=== PATIENT | female | born 1980 | race Caucasian/White ===

== ENCOUNTER → 2016-12-26 | Outpatient (CLI) | payer OTHER ==
[~2016-12-26] MED LIST: CIPR500T78 PO; PRCD5U PO; PRD20T PO
--- OUTSIDE RECORDS SUMMARY | 2016-12-26 13:58 | XMS REPORT | Continuity of Care Document ---
Author Author [facility] Organization [facility] Address Unknown Phone Unavailable Allergies Medications Problems Procedures Results Encounters ACCT No. Visit Date/Time Discharge Status Pt. Type Provider Facility Loc./Unit Complaint [id number] 12/30/2013 19:15:00 2013 21:26:00 DIS Emergency
--- NOTE | 2016-12-26 19:24 | Diagnostic Imaging Report ---
OB ultrasound. INDICATION: Dating. FINDINGS: There is a live intrauterine with heart rate of 130 beats per minute. The placental implantation is posterior. The growth parameters are all around 15 weeks and 1 day which would correlate with the BERNABE of 06/18/2017. IMPRESSION: Live intrauterine . BERNABE is 06/18/2017. survey is recommended at 18-20 weeks of gestation. Dictated by: Dictated on workstation # [id number]
== END ==
LOC: RAD 13:55
PROVIDERS: ATTEND Family Medicine
DX: Z34.82 Encounter for supervision of other normal pregnancy, second trimester (principal)
CPT/HCPCS: 76805

== ENCOUNTER → 2017-02-07 | Outpatient (CLI) | payer MEDICAID ==
--- NOTE | 2017-02-07 13:27 | Diagnostic Imaging Report ---
OB ultrasound. INDICATION: survey. FINDINGS: The heart rate is 127 beats per minute. The placenta is posterior. There is no placenta previa. The cervix is long and closed. survey parameters demonstrate no ventriculomegaly. The four-chamber view is not well seen due to position. The stomach appears unremarkable. The urinary bladder appears unremarkable. Cord insertion appears normal. No hydronephrosis or cystic mass seen at the level of the kidneys. Three-vessel cord is not well seen. The spine demonstrates no definite abnormality. The growth parameters are: Biparietal diameter: 20 weeks and 5 days. Head circumference: 20 weeks 5 days. Abdominal circumference: 20 weeks 4 days. Femur length: 20 weeks 2 days. The average growth parameters are at 20 weeks and 4 days. This is concordant with the prior ultrasound of 12/26/2016 with appropriate interval growth. Current gestational age based on the prior ultrasound is 21 weeks and 2 days. IMPRESSION: Short-term follow-up to reevaluate four-chamber view and three-vessel cord is recommended. Dictated by: Dictated on workstation # [id number]
== END ==
LOC: RAD 10:02
PROVIDERS: ATTEND Family Medicine
DX: Z34.82 Encounter for supervision of other normal pregnancy, second trimester (principal); Z3A.20 20 weeks gestation of pregnancy
CPT/HCPCS: 76805

== ENCOUNTER 2017-05-17 09:00 | Outpatient (CLI) | payer MEDICAID ==
[~2017-05-17] VITALS: Ht 165.1 cm; Wt 107.0 kg
[2017-05-17 09:10] VITALS: BP 112/71
[2017-05-17] MEDS ORDERED: PREN-37 PO (09:21)
--- NOTE | 2017-05-17 10:51 | Diagnostic Imaging Report ---
INDICATION: Vaginal bleeding. TECHNIQUE: Multiple real-time grayscale images were obtained over the gravid uterus. COMPARISON: 02/07/2017 FINDINGS: Single live intrauterine with heart rate of 134 beats per minute. The HODA is normal at 10.4 cm. The placenta is fundal in location. No previa. Fetus is in cephalic position. Biometrical measurements are as follows: Biparietal 9 cm, age 36 weeks 4 days. Head circumference 31.93 cm, age 36 weeks 0 days. Abdominal circumference 31.4 cm, age 35 weeks 3 days. Femur length 6.6 cm, age 34 weeks 1 days. Sonographic estimate age: 35 weeks 4 days. Sonographic estimated date of delivery: 06/17/2017. Estimated Weight: 2610 gm (+/- 381 gm). LMP percentile: 41%. heart rate: 134 beats per minute. number: 1 of 1. IMPRESSION: 1. Single live intrauterine with heart rate of 134 beats per minute. 2. Normal HODA of 10 cm. Dictated by: Dictated on workstation # [id number]
--- NOTE | 2017-05-18 12:04 | Physician Query-Final Dx ---
CALLIE BARRAGAN 05/18/17 1204: Clinic Account Progress/Dx Physician Query: Please give diagnosis Date of Service May 17, 2017 at 09:00 SHUN DAMON MD 05/18/17 1938: Clinic Account Progress/Dx DIAGNOSIS: Diagnosis Third Trimester bleeding CALLIE BARRAGAN May 18, 2017 12:04 SHUN DAMON MD May 18, 2017 19:38
[2017-06-13] MEDS ORDERED: DOCU100C37 PO (07:57)
[2017-06-13] MEDS ORDERED: IBUP-1780 PO (07:57)
[2017-06-13] MEDS ORDERED: OXYC-465 PO (07:57)
== END 2017-05-17 10:40 | disposition home or self-care (01) ==
LOC: LDRP 09:00 → WSo 09:00 → LDRP 10:11 → 3RD 10:11 → WSo 10:40
PROVIDERS: ATTEND Family Medicine
DX: O46.93 Antepartum hemorrhage, unspecified, third trimester (principal); Z3A.35 35 weeks gestation of pregnancy
CPT/HCPCS: 76816; 99213

== ENCOUNTER 2017-06-07 12:03 | Outpatient (CLI) | payer MEDICAID ==
[~2017-06-07] VITALS: Ht 165.1 cm; Wt 108.9 kg
[~2017-06-07 12:03] MED LIST changes: +PREN-37 PO
[2017-06-07] MEDS ORDERED: DIPH25CA79 PO (12:15)
[2017-06-07 12:17] VITALS: BP 112/67
== END 2017-06-07 12:54 | disposition home or self-care (01) ==
LOC: PREOP 12:03
PROVIDERS: ATTEND Obstetrics & Gynecology
DX: Z01.818 Encounter for other preprocedural examination (principal); O34.219 Maternal care for unspecified type scar from previous cesarean delivery; O99.019 Anemia complicating pregnancy, unspecified trimester; D64.9 Anemia, unspecified
CPT/HCPCS: 87081

== ENCOUNTER 2017-06-12 11:05 | Inpatient (IN) | payer MEDICAID ==
[~2017-06-12] VITALS: Ht 165.1 cm; Wt 108.9 kg
[~2017-06-12 11:05] MED LIST changes: +DIPH25CA79 PO
[2017-06-12 11:28] VITALS: BP 116/72
[2017-06-12] MEDS ORDERED: D5 LR IV SOLUTION 1,000 ML IV SCH (12:05)
[2017-06-12] MEDS ORDERED: OXYTOCIN/NORMAL SALINE 500 ML IV SCH (12:07)
[2017-06-12] MEDS ORDERED: D5 LR IV SOLUTION 1,000 ML IV ONE (12:15)
[2017-06-12] MEDS ORDERED: metroNIDAZOLE 500MG/100ML IVPB 100 ML IV ONE (12:15)
[2017-06-12] MEDS ORDERED: MEASLES,MUMPS,RUBELLA 1 EA INJ SC ONE (12:15)
[2017-06-12] MEDS ORDERED: TETANUS,DIPTH,PERTUSS P/F (BOOSTRIX) 0.5 ML VIAL IM ONE (12:15)
[2017-06-12] MEDS ORDERED: PROMETHAZINE INJ 25 MG/ML (PHENERGAN) AMP IM PRN (12:15)
[2017-06-12] MEDS ORDERED: MEPERIDINE (DEMEROL) INJ 100 MG/ML IM PRN (12:15)
[2017-06-12] MEDS ORDERED: metroNIDAZOLE 500MG/100ML IVPB 100 ML ONE (12:27)
[2017-06-12] MEDS ORDERED: CITRIC ACID/SOB CIT (BICITRA) 30 ML UDC ONE (12:27)
[2017-06-12] MEDS ORDERED: METOCLOPRAMIDE INJ 10 MG/2 ML (REGLAN) ONE (12:27)
[2017-06-12] MEDS ORDERED: ceFAZolin 2 GM/50 ML NS 50 ML ONE (12:28)
[2017-06-12] MEDS ORDERED: LACTATED RINGERS 1,000 ML IV ONE ×2 (12:28→14:18)
[2017-06-12] MEDS ORDERED: FAMOTIDINE 20MG/2ML IV (PEPCID) ONE (12:28)
[2017-06-12] MEDS ORDERED: FAMOTIDINE 20MG/2ML IV (PEPCID) IV ONE (12:30)
[2017-06-12] MEDS ORDERED: CATHETER FLUSH 10 ML SYR IV PRN (12:30)
[2017-06-12] MEDS ORDERED: METOCLOPRAMIDE INJ 10 MG/2 ML (REGLAN) IV ONE (12:30)
[2017-06-12] MEDS ORDERED: CITRIC ACID/SOB CIT (BICITRA) 30 ML UDC PO ONE (12:30)
[2017-06-12 12:35] LABS: BASOPHILS % (AUTO) 0 % (0-10); EOSINOPHILS # (AUTO) 0.1 10^3/uL (0.0-0.3); EOSINOPHILS % (AUTO) 1 % (0-10); LYMPHOCYTES # (AUTO) 1.8 X 10^3 (1.0-4.0); LYMPHOCYTES % (AUTO) 17 % (12-44); MEAN CORPUSCULAR HEMOGLOBIN 31 PG (25-34); MEAN CORPUSCULAR HGB CONC 35 G/DL (32-36); MEAN CORPUSCULAR VOLUME 90 FL (80-99); MEAN PLATELET VOLUME 10.8 FL (7.4-10.4); MONOCYTES # (AUTO) 0.9 X 10^3 (0.0-1.0); MONOCYTES % (AUTO) 8 % (0-12); NEUTROPHILS # (AUTO) 7.9 X 10^3 (1.8-7.8); NEUTROPHILS % (AUTO) 74 % (42-75); PLATELET COUNT 199 10^3/uL (130-400); RED BLOOD COUNT 4.19 10^6/uL (4.35-5.85); RED CELL DISTRIBUTION WIDTH 13.2 % (10.0-14.5); WHITE BLOOD COUNT 10.7 10^3/uL (4.3-11.0)
[2017-06-12] MEDS ORDERED: fentaNYL INJECTION 100 MCG/2 ML AMP ONE (12:57)
[2017-06-12] MEDS ORDERED: morphine PF (DURAMORPH) 10 MG/10 ML AMP ONE (12:57)
--- NOTE | 2017-06-12 12:57 | History & Physical ---
History and Physical Date Seen by Provider: Jun 12, 2017 Time Seen by Provider: 12:55 this patient is a 36-year-old female patient of Dr. Nguyen who presents now for repeat at 39-1/7 weeks gestation. Her has been uncomplicated. She denies rupture membranes or bleeding. Allergies are none Medications are Benadryl and vitamins Past medical history, past surgical history, obstetric history, family history, social histories are per the antepartum record for Dr. Li Lab work is as follows Laboratory Tests Test 06/12/17 11:35 Range/Units White Blood Count 10.7 4.3-11.0 10^3/uL Red Blood Count 4.19 L 4.35-5.85 10^6/uL Hemoglobin 13.0 11.5-16.0 G/DL Hematocrit 38 35-52 % Mean Corpuscular Volume 90 80-99 FL Mean Corpuscular Hemoglobin 31 25-34 PG Mean Corpuscular Hemoglobin Concent 35 32-36 G/DL Red Cell Distribution Width 13.2 10.0-14.5 % Platelet Count 199 130-400 10^3/uL Mean Platelet Volume 10.8 H 7.4-10.4 FL Neutrophils (%) (Auto) 74 42-75 % Lymphocytes (%) (Auto) 17 12-44 % Monocytes (%) (Auto) 8 0-12 % Eosinophils (%) (Auto) 1 0-10 % Basophils (%) (Auto) 0 0-10 % Neutrophils # (Auto) 7.9 H 1.8-7.8 X 10^3 Lymphocytes # (Auto) 1.8 1.0-4.0 X 10^3 Monocytes # (Auto) 0.9 0.0-1.0 X 10^3 Eosinophils # (Auto) 0.1 0.0-0.3 10^3/uL Basophils # (Auto) 0.0 0.0-0.1 10^3/uL white count hemoglobin and platelet count are normal. HEENT exam is normal Neck is supple no lymphadenopathy no thyromegaly Abdomen is gravid soft nontender nondistended Extreme show clubbing cyanosis. There is no Homans sign. There is some pretibial pitting edema that is normal. Pelvic exam is deferred Assessment and plan term at 39+ weeks' gestation presenting now for repeat delivery surgical risks complication recovering follow-up have been fully discussed all this patient's questions have been answered and she is ready to proceed. 39 week gestation with previous Allergies and Home Medications Allergies Coded Allergies: No Known Drug Allergies (Unverified , 06/07/17) Home Medications Diphenhydramine HCl 25 Mg Capsule, 25 MG PO DAILY, (Reported) Vit/Iron Fumarate/FA 1 Each Tablet, 1 EACH PO DAILY, (Reported) SAFIA BENNETT MD Jun 12, 2017 12:57
[2017-06-12] MEDS: ceFAZolin INJECTION 2,000 MG in NS (IVPB) 50 ML IV ONE ×2 (13:13→13:17)
[2017-06-12] MEDS ORDERED: OXYTOCIN/NORMAL SALINE 500 ML IV ONE ×2 (13:28→14:22)
[2017-06-12] MEDS ORDERED: LACTATED RINGERS 2,000 ML IV ONE (13:28)
[2017-06-12] MEDS ORDERED: ONDANSETRON 4 MG/2 ML (SDV) Z0FRAN ONE (13:57)
[2017-06-12] MEDS ORDERED: fentaNYL INJECTION 100 MCG/2 ML AMP INJ ONE (14:30)
[2017-06-12] MEDS ORDERED: NALOXONE 0.4 MG/ML 1 ML (NARCAN) VIAL IV PRN (14:30)
[2017-06-12] MEDS ORDERED: morphine PF (DURAMORPH) 10 MG/10 ML AMP INJ ONE (14:30)
[2017-06-12] MEDS ORDERED: ONDANSETRON 4 MG/2 ML (SDV) Z0FRAN IV PRN (14:30)
--- NOTE | 2017-06-12 14:37 | Progress Note-Post Operative ---
Post-Operative Progess Note Surgeon (s)/Supplier Quality Engineer (s) Surgeon SAFIA BENNETT MD Supplier Quality Engineer: Jose BENNETT CC5 Pre-Operative Diagnosis REPEAT CSECTION Post-Operative Diagnosis term with previous Procedure & Operative Findings Date of Procedure 06/12/17 Procedure Performed/Findings repeat delivery Anesthesia Type spinal Estimated Blood Loss Estimated blood loss (mL): 400cc Specimens/Packing Specimens Removed placenta and cord Packing: none SAFIA BENNETT MD Jun 12, 2017 2:37 pm
[2017-06-12 15:34] VITALS: BP 102/73
[2017-06-12 16:03] VITALS: BP 103/65
[2017-06-12] MEDS: oxyCODONE/APAP 10/325MG (PERCOCET 10) TABLET PO PRN (18:02)
[2017-06-12 20:00] VITALS: BP 103/69
[2017-06-12] MEDS: KETOROLAC 30 MG/ML VIAL IVP SCH (22:29)
--- NOTE | 2017-06-12 23:41 | OPERATIVE REPORT ---
DATE OF SERVICE: 06/12/2017 PREOPERATIVE DIAGNOSIS: A 39-1/7 week gestation with previous . POSTOPERATIVE DIAGNOSIS: A 39-1/7 week gestation with previous . OPERATIVE PROCEDURE: Repeat low transverse . Delivery of a viable male infant with Apgars of 8 and 9 at 1 and 5 minutes respectively, weight is 7 pounds and 1 ounce, time of 1347 and a cord blood arterial pH of 7.29. OPERATIVE DESCRIPTION: With the patient in the supine position under satisfactory spinal anesthesia, she was prepped and draped in the usual fashion for abdominal surgery. A Rodriguez catheter was placed in the urinary bladder. A Pfannenstiel incision made through the skin with a scalpel at the site of the patient's previous Pfannenstiel incision. The abdomen was entered in the usual manner. Bladder retractors were placed in position and cleaned the scalpel to make a 4 cm hysterotomy incision transversely across the lower uterine segment that was extended by blunt dissection releasing relatively small to moderate amount of amniotic fluid. The incision was extended bluntly. Barnes forceps were applied to facilitate the delivery of a vigorous viable male . Infant had Apgars of 8 and 9 at 1 and 5 minutes respectively. Weight was 7 pounds, 1 ounce, time was 1347. There was a nuchal cord that was easily released. The cord blood pH had value of 7.29. The infant was voiding as it was delivered. The umbilical cord was doubly clamped and cut. The passed to the pediatric nurse in attendance for delivery. Cord bloods were obtained. The placenta delivered spontaneously Fry, it was normal with a 3 vessel cord. The uterus was exteriorized into a wide plane with a wet laparotomy sponge. Uterine incision then closed with a running locked suture of 2-0 Vicryl. Hemostasis was complete. The uterus did have some adhesions of omentum to the anterior surface. These were taken free with electrocautery and then there was some oozing that was controlled with 3 superficial [id number]-[id number] sutures of 2-0 Vicryl as well. The uterus was now returned to abdominal cavity. All blood, clot and debris were removed from the abdominal cavity. Sponge and needle counts correct and hemostasis assured. The anterior parietal peritoneum was closed with a running suture of 2-0 Vicryl. The rectus muscles were closed with that suture as well. The rectus fascia was closed with 2-0 Vicryl subcutaneous tissue, was closed with 2-0 Vicryl and the skin was stapled. Sponge and needle counts were correct at the end of the procedure. Estimated blood loss for the procedure around 400 mL. The patient tolerated the procedure well and was transferred to the recovery room in stable condition. Infant had been taken stable to the full term nursery under the care of Nurse Greenwood, the pediatric nurse in attendance for delivery. Job ID: [id number] DocumentID: [id number] Dictated Date: 06/12/2017 14:50:14 Field Nurse Case Manager Date: 06/12/2017 21:02:14 Dictated By: SAFIA BENNETT MD
[2017-06-13] VITALS: BP 101/67
[2017-06-13] MEDS: DOCUSATE SODIUM 100 MG (COLACE) CAP PO SCH ×3 (00:17→21:07)
[2017-06-13 04:58] VITALS: BP 94/64
[2017-06-13] MEDS: KETOROLAC 30 MG/ML VIAL IVP SCH ×5 (04:58→17:33)
--- NOTE | 2017-06-13 07:56 | Progress Note-Standard ---
Standard Progress Note Progress Notes/Assess & Plan Date Seen by Provider: Jun 13, 2017 Time Seen by Provider: 07:55 Progress/Assessment & Plan this patient without complaint. She is ambulating, voiding, tolerating by mouth , has good pain control. She denies chest pain, denies shortness breath, denies nausea vomiting, and denies headache. Vital Signs Date Time Temp Pulse Resp B/P (MAP) Pulse Ox O2 Delivery O2 Flow Rate FiO2 06/13/17 04:58 96.0 75 19 94/64 96 Room Air 06/13/17 00:00 96.8 92 17 101/67 96 Room Air 06/12/17 20:00 96.6 107 17 103/69 96 Room Air 06/12/17 16:03 96.0 85 16 103/65 95 Room Air 06/12/17 15:34 97.0 78 16 102/73 93 Room Air 06/12/17 11:28 99.0 83 16 116/72 93 Room Air I & O 06/13/17 07:00 Intake Total 1600 ml Output Total 1100 ml Balance 500 ml vital signs are stable. Patient is afebrile. Fundus is firm below the umbilicus nontender. The incision is clean dry and intact. extremities show no clubbing cyanosis. There is no Homans sign. assessment and plan postoperative day number 1 doing well. Plan is for routine convalescence care today and discharge home tomorrow SAFIA BENNETT MD Jun 13, 2017 7:56 am
[2017-06-13] MEDS ORDERED: DOCU100C37 PO (07:57)
[2017-06-13] MEDS ORDERED: IBUP-1780 PO (07:57)
[2017-06-13] MEDS ORDERED: OXYC-465 PO (07:57)
--- NOTE | 2017-06-13 07:59 | Discharge Instructions ---
Discharge Instructions Discharge Medications New, Converted or Re-Newed RX: RX on Chart Patient Instructions Patient Instructions: as directed Return to The Hospital For: as directed Activity & Diet Discharge Diet: No Restrictions Activity as Tolerated: No Orders-Post D/C & Referrals Follow Up Appt: RTC 1 week for incision check with me. Call to make follow up appt. for patient in [address] Nguyen. Wound Care: Remove any, apply benzoin and steri strips. Activity Per routine post instructions. Please call in RX to patient pharmacy. Diet as tolerated Patient may shower or tub bathe as desired. Continue home meds SAFIA BENNETT MD Jun 13, 2017 7:59 am
[2017-06-13 08:00] VITALS: BP 90/60
[2017-06-13] MEDS: oxyCODONE/APAP 10/325MG (PERCOCET 10) TABLET PO PRN ×2 (09:56→23:20)
--- NOTE | 2017-06-13 10:42 | Anesthesia-Regional Post-Op ---
Regional Patient Condition Mental Status: Alert, Oriented x3 Circulation: Same as Pre-Op Headache: Absent Sensation: Full Recovery Motor Block: Absent Post Op Complications Complications None Follow Up Care/Instructions Patient Instructions None needed. Anesthesia/Patient Condition Patient is doing well, no complaints, stable vital signs, no apparent adverse anesthesia problems. No complications reported per nursing. NANCY HICKMAN CRNA Jun 13, 2017 10:41
[2017-06-13] MEDS: IBUPROFEN 800 MG (MOTRIN) TAB PO SCH ×3 (11:55→23:20)
[2017-06-13 12:00] VITALS: BP 89/60
[2017-06-13 16:00] VITALS: BP 91/60
[2017-06-13 21:00] VITALS: BP 95/64
[2017-06-14 04:00] VITALS: BP 97/60
[2017-06-14] MEDS: IBUPROFEN 800 MG (MOTRIN) TAB PO SCH (06:14)
[2017-06-14] MEDS: oxyCODONE/APAP 10/325MG (PERCOCET 10) TABLET PO PRN ×2 (06:15→09:39)
--- NOTE | 2017-06-14 07:07 | Progress Note-Standard ---
Standard Progress Note Progress Notes/Assess & Plan Date Seen by Provider: Jun 14, 2017 Time Seen by Provider: 07:06 Progress/Assessment & Plan this patient without complaint. She is ambulating, voiding, tolerating by mouth , has good pain control. She denies chest pain, denies shortness breath, denies nausea vomiting, and denies headache. Vital Signs Date Time Temp Pulse Resp B/P (MAP) Pulse Ox O2 Delivery O2 Flow Rate FiO2 06/13/17 04:58 96.0 75 19 94/64 96 Room Air 06/13/17 00:00 96.8 92 17 101/67 96 Room Air 06/12/17 20:00 96.6 107 17 103/69 96 Room Air 06/12/17 16:03 96.0 85 16 103/65 95 Room Air 06/12/17 15:34 97.0 78 16 102/73 93 Room Air 06/12/17 11:28 99.0 83 16 116/72 93 Room Air I & O 06/13/17 07:00 Intake Total 1600 ml Output Total 1100 ml Balance 500 ml vital signs are stable. Patient is afebrile. Fundus is firm below the umbilicus nontender. The incision is clean dry and intact. extremities show no clubbing cyanosis. There is no Homans sign. assessment and plan postoperative day number 1 doing well. Plan is for routine convalescence care today and discharge home tomorrow June 14, 2017 Patient without complaint.she is ambulating, voiding, tolerating by mouth well, has good pain control, is requesting discharge home. Vital Signs Date Time Temp Pulse Resp B/P (MAP) Pulse Ox O2 Delivery O2 Flow Rate FiO2 06/14/17 04:00 97.3 75 18 97/60 98 Room Air 06/13/17 21:00 98.2 80 18 95/64 98 Room Air 06/13/17 16:00 97.7 81 20 91/60 95 Room Air 06/13/17 12:00 97.7 81 20 89/60 95 Room Air 06/13/17 08:00 98.6 80 20 90/60 98 Room Air vital signs are stable. Patient is afebrile. Abdomen is benign. Fundus is firm below the umbilicus is nontender. The incision is clean dry and intact. Extremities show clubbing or cyanosis. There is no Homans sign. Assessment and plan postoperative day number 2 status post repeat doing well. Plan is for discharge home with follow-up in clinic Final Diagnosis 39 week repeat delivery SAFIA BENNETT MD Jun 14, 2017 7:07 am
[2017-06-14 07:50] VITALS: BP 94/64
[2017-06-14] MEDS: DOCUSATE SODIUM 100 MG (COLACE) CAP PO SCH (09:39)
== END 2017-06-14 11:15 | disposition home or self-care (01) | DRG 766 ==
LOC: LDRP 11:05
PROVIDERS: ADMIT Obstetrics & Gynecology; ATTEND Obstetrics & Gynecology
PROC: 10D00Z1 Extraction of Products of Conception, Low, Open Approach (ICD-10-PCS; principal; 2017-06-12 13:15)
DX: O34.211 Maternal care for low transverse scar from previous cesarean delivery (principal); O69.81X0 Labor and delivery complicated by cord around neck, without compression, not applicable or unspecified; Z3A.39 39 weeks gestation of pregnancy; Z37.0 Single live birth
CPT/HCPCS: 36415; 85025; 86850; 86900; 86901; 94664

== ENCOUNTER 2020-05-13 11:12 | Emergency (ER) | payer BC, MEDICAID ==
[~2020-05-13] VITALS: Ht 165.1 cm; Wt 110.3 kg
[~2020-05-13 11:12] MED LIST changes: +DOCU100C37 PO; +IBUP-1780 PO; +OXYC-465 PO
[2020-05-13 11:34] VITALS: BP_SYST 120; BP_SYST 126; BP_SYST 143; BP_DIAS 101; BP_DIAS 84
[2020-05-13] MEDS ORDERED: NS IV 1000 ML 1,000 ML IV SCH (11:45)
[2020-05-13 11:50] LABS: BASOPHILS % (AUTO) 1 % (0-10); EOSINOPHILS # (AUTO) 0.2 10^3/uL (0.0-0.3); EOSINOPHILS % (AUTO) 3 % (0-10); HEMATOCRIT 43 % (35-52); HEMOGLOBIN 15.1 G/DL (11.5-16.0); LYMPHOCYTES # (AUTO) 2.1 X 10^3 (1.0-4.0); LYMPHOCYTES % (AUTO) 29 % (12-44); MEAN CORPUSCULAR HEMOGLOBIN 32 PG (25-34); MEAN CORPUSCULAR HGB CONC 35 G/DL (32-36); MEAN CORPUSCULAR VOLUME 91 FL (80-99); MEAN PLATELET VOLUME 10.8 FL (7.4-10.4); MONOCYTES # (AUTO) 0.7 X 10^3 (0.0-1.0); MONOCYTES % (AUTO) 10 % (0-12); NEUTROPHILS # (AUTO) 4.1 X 10^3 (1.8-7.8); NEUTROPHILS % (AUTO) 57 % (42-75); PLATELET COUNT 265 10^3/uL (130-400); RED CELL DISTRIBUTION WIDTH 12.8 % (10.0-14.5); WHITE BLOOD COUNT 7.3 10^3/uL (4.3-11.0)
[2020-05-13 11:54] LABS: ALBUMIN 4.4 GM/DL (3.2-4.5); CHLORIDE 106 MMOL/L (98-107); POTASSIUM 3.7 MMOL/L (3.6-5.0); SODIUM 140 MMOL/L (135-145)
[2020-05-13 11:55] LABS: CALCIUM 9.2 MG/DL (8.5-10.1)
[2020-05-13 11:56] LABS: GLUCOSE 102 MG/DL (70-105)
[2020-05-13 11:57] LABS: TOTAL PROTEIN 7.5 GM/DL (6.4-8.2)
[2020-05-13 11:58] LABS: BILIRUBIN,TOTAL 0.5 MG/DL (0.1-1.0); CARBON DIOXIDE 25 MMOL/L (21-32)
[2020-05-13 12:00] LABS: ALKALINE PHOSPHATASE 104 U/L (40-136); CREATININE SERUM 0.97 MG/DL (0.60-1.30); GFR ESTIMATED > 60
[2020-05-13 12:01] LABS: BUN/CREATININE RATIO 13
[2020-05-13 12:03] LABS: ALANINE AMINOTRANSFERASE 37 U/L (0-55); MAGNESIUM 2.1 MG/DL (1.6-2.4)
[2020-05-13 12:26] LABS: FREE T4 (FREE THYROXINE) 0.94 NG/DL (0.70-1.48)
[2020-05-13 12:30] LABS: BILIRUBIN,URINE NEGATIVE (NEGATIVE); CLARITY,URINE SL CLOUDY; COLOR,URINE YELLOW; GLUCOSE, URINE (UA) NEGATIVE (NEGATIVE); KETONES,URINE NEGATIVE (NEGATIVE); LEUKOCYTE ESTERASE ,URINE NEGATIVE (NEGATIVE); NITRITE,URINE NEGATIVE (NEGATIVE); PH,URINE 7.5 (5-9); PROTEIN,URINE NEGATIVE (NEGATIVE)
[2020-05-13 12:38] LABS: AMORPHOUS SEDIMENT,UR MOD AMOR PHOSPHATE /LPF; BACTERIA,URINE TRACE /HPF
--- NOTE | 2020-05-13 12:42 | ED General ---
General Chief Complaint: Dizziness/Syncope Stated Complaint: WEAKNESS Nursing Triage Note: Pt ambulates to room #5 with c/o weakness, shakiness, et light headedness. Pt reports s/s began on this day while at work after near syncopal episode. Pt reports increase in severity in s/s when standing. Pt reports she began ATX prescription on this day d/t broken tooth. A&OX4. Nursing Sepsis Screen: No Definite Risk Source of Information: Patient Exam Limitations: No Limitations History of Present Illness Date Seen by Provider: May 13, 2020 Time Seen by Provider: 12:30 Initial Comments To ER with general weakness shakiness and lightheadedness that started this morning while at work. She does feel anxious. Never had this before. Timing/Duration: 1-2 Days Severity: Moderate Allergies and Home Medications Allergies Coded Allergies: No Known Drug Allergies (Unverified , 06/07/17) Home Medications Diphenhydramine HCl 25 Mg Capsule, 25 MG PO DAILY, (Reported) Docusate Sodium 100 Mg Capsule, 100 MG PO BID Prescribed by: SAFIA GAN on 06/13/17 075 Ibuprofen 800 Mg Tablet, 800 MG PO Q6H Prescribed by: SAFIA GAN on 06/13/17 075 Oxycodone HCl/Acetaminophen 1 Each Tablet, 1-2 TAB PO Q4HR PRN for PAIN-MODERATE Prescribed by: SAFIA GAN on 06/13/17 075 Vit/Iron Fumarate/FA 1 Each Tablet, 1 EACH PO DAILY, (Reported) Patient Home Medication List Home Medication List Reviewed: Yes Review of Systems Review of Systems Constitutional: see HPI; No chills, No fever EENTM: see HPI Respiratory: no symptoms reported; No dyspnea on exertion, No short of breath Cardiovascular: see HPI; No chest pain, No edema, No Hx of Intervention, No palpitations, No syncope, No vascular heart diseas Genitourinary: no symptoms reported Musculoskeletal: no symptoms reported Skin: no symptoms reported Psychiatric/Neurological: No Symptoms Reported Hematologic/Lymphatic: No Symptoms Reported Past Llkskbu-Jjwegw-Aofksa Hx Patient Social History Alcohol Use: Denies Use Recreational Drug Use: No Smoking Status: Current Everyday Smoker Type Used: Cigarettes Former Smoker, Quit: Sep 12, 2016 Recent Foreign Travel: No Contact w/Someone Who Travel: No Recent Infectious Disease Expo: No Recent Hopitalizations: No Immunizations Up To Date Tetanus Booster (TDap): Unknown PED Vaccines UTD: Yes Seasonal Allergies Seasonal Allergies: No Past Medical History Surgeries: Yes Section, Tubal Ligation Respiratory: No Cardiac: No Neurological: No Female Reproductive Disorders: Denies Sexually Transmitted Disease: No HIV/AIDS: No Genitourinary: No Gastrointestinal: Yes Gastroesophageal Reflux Musculoskeletal: No Endocrine: No HEENT: Yes (GLASSES) Loss of Vision: Bilateral Hearing Impairment: Denies Cancer: No Psychosocial: No Integumentary: No Blood Disorders: No Adverse Reaction/Blood Tranf: No Physical Exam Vital Signs Vital Signs - First Documented 05/13/20 11:26 Temp 36.5 Pulse 78 Resp 17 B/P (MAP) 124/96 (105) Pulse Ox 98 O2 Delivery Room Air Capillary Refill : Less Than 3 Seconds Height, Weight, BMI Height: 5'5.00" Weight: 240lbs. 3.0oz. 108.921317dh; 40.00 BMI Method: General Appearance: No Apparent Distress, WD/WN Eyes: Bilateral Eye Normal Inspection, Bilateral Eye PERRL, Bilateral Eye EOMI HEENT: PERRL/EOMI, TMs Normal Neck: Full Range of Motion, Normal Inspection Respiratory: No Accessory Muscle Use, No Respiratory Distress Gastrointestinal: Non Tender, Soft Extremity: Normal Capillary Refill, Normal Inspection Neurologic/Psychiatric: Alert, Oriented x3 Skin: Normal Color, Warm/Dry Progress/Results/Core Measures Suspected Sepsis Recent Fever Within 48 Hours: No Infection Criteria Present: Suspected New Infection New/Unexplained Altered Menta: No Sepsis Screen: No Definite Risk SIRS Temperature: Pulse: 100 Respiratory Rate: 17 Laboratory Tests 05/13/20 11:35: White Blood Count 7.3 Blood Pressure 143 /101 Mean: 115 Laboratory Tests 05/13/20 11:35: Creatinine 0.97, Platelet Count 265, Total Bilirubin 0.5 Results/Orders Lab Results Laboratory Tests Test 05/13/20 11:35 05/13/20 11:40 Range/Units White Blood Count 7.3 4.3-11.0 10^3/uL Red Blood Count 4.72 4.35-5.85 10^6/uL Hemoglobin 15.1 11.5-16.0 G/DL Hematocrit 43 35-52 % Mean Corpuscular Volume 91 80-99 FL Mean Corpuscular Hemoglobin 32 25-34 PG Mean Corpuscular Hemoglobin Concent 35 32-36 G/DL Red Cell Distribution Width 12.8 10.0-14.5 % Platelet Count 265 130-400 10^3/uL Mean Platelet Volume 10.8 H 7.4-10.4 FL Neutrophils (%) (Auto) 57 42-75 % Lymphocytes (%) (Auto) 29 12-44 % Monocytes (%) (Auto) 10 0-12 % Eosinophils (%) (Auto) 3 0-10 % Basophils (%) (Auto) 1 0-10 % Neutrophils # (Auto) 4.1 1.8-7.8 X 10^3 Lymphocytes # (Auto) 2.1 1.0-4.0 X 10^3 Monocytes # (Auto) 0.7 0.0-1.0 X 10^3 Eosinophils # (Auto) 0.2 0.0-0.3 10^3/uL Basophils # (Auto) 0.0 0.0-0.1 10^3/uL Sodium Level 140 135-145 MMOL/L Potassium Level 3.7 3.6-5.0 MMOL/L Chloride Level 106 98-107 MMOL/L Carbon Dioxide Level 25 21-32 MMOL/L Anion Gap 9 5-14 MMOL/L Blood Urea Nitrogen 13 7-18 MG/DL Creatinine 0.97 0.60-1.30 MG/DL Estimat Glomerular Filtration Rate > 60 BUN/Creatinine Ratio 13 Glucose Level 102 70-105 MG/DL Calcium Level 9.2 8.5-10.1 MG/DL Corrected Calcium 8.9 8.5-10.1 MG/DL Magnesium Level 2.1 1.6-2.4 MG/DL Total Bilirubin 0.5 0.1-1.0 MG/DL Aspartate Amino Transf (AST/SGOT) 31 5-34 U/L Alanine Aminotransferase (ALT/SGPT) 37 0-55 U/L Alkaline Phosphatase 104 40-136 U/L Total Protein 7.5 6.4-8.2 GM/DL Albumin 4.4 3.2-4.5 GM/DL Thyroid Stimulating Hormone (TSH) 1.58 0.35-4.94 UIU/ML Free Thyroxine 0.94 0.70-1.48 NG/DL Serum Test, Qualitative NEGATIVE NEGATIVE Urine Color YELLOW Urine Clarity SL CLOUDY Urine pH 7.5 5-9 Urine Specific Douglas 1.020 1.016-1.022 Urine Protein NEGATIVE NEGATIVE Urine Glucose (UA) NEGATIVE NEGATIVE Urine Ketones NEGATIVE NEGATIVE Urine Nitrite NEGATIVE NEGATIVE Urine Bilirubin NEGATIVE NEGATIVE Urine Urobilinogen 0.2 < = 1.0 MG/DL Urine Leukocyte Esterase NEGATIVE NEGATIVE Urine RBC (Auto) 1+ H NEGATIVE Urine RBC 2-5 H /HPF Urine WBC NONE /HPF Urine Squamous Epithelial Cells 5-10 /HPF Urine Crystals PRESENT H /LPF Urine Amorphous Sediment MOD JAKE PHOSPHATE H /LPF Urine Bacteria TRACE /HPF Urine Casts NONE /LPF Urine Mucus NEGATIVE /LPF Urine Culture Indicated NO My Orders Orders - SHELBY ROTHMAN FOOD SAFETY MANAGER Cbc With Automated Diff (05/13/20 11:44) Comprehensive Metabolic Panel (05/13/20 11:44) Hcg,Qualitative Serum (05/13/20 11:44) Ed Iv/Invasive Line Start (05/13/20 11:44) Magnesium (05/13/20 11:44) Thyroid Stimulating Hormone (05/13/20 11:44) Free T4 (Free Thyroxine) (05/13/20 11:44) Ns Iv 1000 Ml (Sodium Chloride 0.9%) (05/13/20 11:45) Ua Culture If Indicated (05/13/20 12:23) Alprazolam Tablet (Xanax Tablet) (05/13/20 12:45) Medications Given in ED Current Medications Medications Dose Ordered Sig/Irene Route Start Time Stop Time Status Last Admin Dose Admin Alprazolam 0.25 mg ONCE ONCE PO 05/13/20 12:45 05/13/20 12:46 DC 05/13/20 12:45 0.25 MG Vital Signs/I&O 05/13/20 05/13/20 05/13/20 11:26 11:34 13:14 Temp 36.5 Pulse 78 80 60 79 64 100 66 Resp 17 B/P (MAP) 124/96 (105) 126/84 (98) 115/82 (93) 120/84 (96) 122/77 (92) 143/101 (115) 119/83 (95) Pulse Ox 98 O2 Delivery Room Air Capillary Refill : Less Than 3 Seconds Blood Pressure Mean: 115 Departure Impression Primary Impression: Lightheadedness Additional Impressions: Anxiety Dizziness Disposition: 01 HOME, SELF-CARE Condition: Stable Departure-Patient Inst. Decision time for Depature: 13:27 Referrals: SHUN NGUYEN MD (PCP/Family) Primary Care Physician Patient Instructions: Anxiety, Adult (DC), Vertigo (a Type of Dizziness), La byrinthitis Add. Discharge Instructions: 1. Return to ER for any concerns 2. Follow-up with Dr. Nguyen 3. Medication as directed All discharge instructions reviewed with patient and/or family. Voiced understanding. SHELBY ROTHMAN FOOD SAFETY MANAGER May 13, 2020 12:42
[2020-05-13] MEDS ORDERED: ALPRAZolam 0.25 MG (XANAX) TAB PO ONE (12:45)
[2020-05-13 13:14] VITALS: BP_SYST 115; BP_SYST 119; BP_SYST 122; BP_DIAS 77; BP_DIAS 82; BP_DIAS 83
[2020-05-13] MEDS ORDERED: LORA-404 PO (13:34)
[2020-05-13 13:43] VITALS: BP 119/83
--- OUTSIDE RECORDS SUMMARY | 2020-05-13 13:58 | XMS REPORT ---
Author Author Cleveland CLEVELAND Organization [facility] Address [address] [place] [address] Care Team Providers Care [employer] Assessor Name Role Phone ROSE CLEVELAND Unavailable PROBLEMS No Known Problems ALLERGIES No Information ENCOUNTERS Encounter Location Date Diagnosis [facility] [id number] [place] [phone] Jan, [facility] [id number] [place] [id number] Jul, Dental examination Z01.20 an d Caries K02.9 [facility] [id number] [place] [phone] Jul, Tooth infection K04.7 [facility] [id number] [place] [phone] Oct, Caries K02.9 [facility] [id number] [place] [address] [phone] Sep, Caries K02.9 and Dental exam ination Z01.20 [facility] [id number] [place] [phone] Jul, Vertigo R42 [facility] [id number] [place] [phone] Nov, [facility] [address] [facility] [id number] [address] [place] [phone] Oct, [facility] [address] [facility] [id number] [address] [place] [phone] Jun, Encounter for vis it Z39.2 and Sinus congestion R09.81 [facility] [address] [id number] Estelle CAICEDO S [id number] May, [facility] [address] [id number] [place], Estelle S [id number] May, [place] [id number] [place] [phone] May, Screening for deficiency ane shiv Z13.0 [place] [id number] [place] [phone] May, Third trimester Z3 4.93 ; Previous section Z98.891 and 38 weeks gestation of Z3A.38 [place] [id number] [place] [phone] May, 37 weeks gestation of pregna ncy Z3A.37 ; Third trimester Z34.93 and Previous section Z98.891 [place] [id number] [place] [phone] Apr, 36 weeks gestation of pregna ncy Z3A.36 ; Third trimester Z34.93 and Previous section Z98.891 [place] [address] [place] [phone] Apr, [place] [id number] [place] [phone] Apr, 34 weeks gestation of pregna ncy Z3A.34 and Third trimester Z34.93 [place] [id number] [place] [phone] Mar, 31 weeks gestation of pregna ncy Z3A.31 ; Encounter for immunization Z23 ; Previous section Z98.891 and Third trimester Z34.93 [place] [id number] [place] [phone] 14 Mar, 2017 Glucose tolerance test abnor mal R73.02 [place] [address] [facility] [id number] [address] [place] [phone] 07 Mar, 2017 29 weeks gestation of pregna ncy Z3A.29 ; Third trimester Z34.93 and Previous section Z98.891 [facility] [address] [facility] [id number] [address] [place] [phone] Jan, [facility] [address] [facility] [id number] [address] [place] [phone] Jan, Flank pain R10.9 ; Diseases of the digestive system complicating , second trimester O99.612 ; Second trimester Z33.1 and 21 weeks gestation of Z3A.21 [facility] [address] [facility] [id number] [address] [place] [phone] Dec, Normal in multigra stephanie Z34.80 ; 17 weeks gestation of Z3A.17 and Advanced maternal age in multigravida, second trimester O09.522 [facility] [id number] [place] [phone] 16 Nov, 2016 First trimester Z3 3.1 ; Normal in multigravida Z34.80 and 12 weeks gestation of Z3A.12 [facility] [address] [facility] [id number] [address] [place] [phone] Nov, [facility] [id number] [place] [phone] Oct, Encounter for test Z32.00 [facility] [address] [facility] [id number] [address] [place] [address] [phone] Apr, Dental examination V72.2 [facility] [address] [facility] [id number] [address] [place] [phone] Jan, [facility] [address] [facility] [id number] [address] [place] [phone] Jan, [facility] [address] [facility] [id number] [address] [place] [phone] Mar, [facility] [address] [facility] [id number] [address] [place] [phone] Mar, [facility] [id number] [place] [phone] Mar, [facility] [address] [facility] [id number] [address] [place] [phone] Mar, IMMUNIZATIONS No Known Immunizations SOCIAL HISTORY Never Assessed REASON FOR VISIT PLAN OF CARE VITAL SIGNS MEDICATIONS Unknown Medications RESULTS No Results PROCEDURES No Known procedures INSTRUCTIONS MEDICATIONS ADMINISTERED No Known Medications MEDICAL (GENERAL) HISTORY Type Description Date Surgical History section Surgical History Tubal ligation Hospitalization History Childbirth
--- OUTSIDE RECORDS SUMMARY | 2020-05-13 13:58 | XMS REPORT ---
Author Author Cleveland CLEVELAND Organization [facility] Address [address] [place] [address] Care Team Providers Care Cdl Company Driver Name Role Phone ROSE CLEVELAND Unavailable PROBLEMS No Known Problems ALLERGIES No Information ENCOUNTERS Encounter Location Date Diagnosis [facility] [id number] [place] [phone] Jan, [facility] [id number] [place] [address] [phone] Jul, Dental examination Z01.20 an d Caries K02.9 [facility] [id number] [place] [phone] Jul, Tooth infection K04.7 [facility] [id number] [place] [address] [id number] Oct, Caries K02.9 [facility] [id number] [place] [address] [id number] Sep, Caries K02.9 and Dental exam ination Z01.20 [facility] [id number] [place] [phone] Jul, Vertigo R42 [facility] [id number] [place] [phone] Nov, [facility] [address] [facility] [id number] [address] [place] [phone] Oct, [facility] [address] [facility] [id number] [address] [place] [phone] Jun, Encounter for vis it Z39.2 and Sinus congestion R09.81 [facility] [address] [id number] Estelle [place] S [id number] May, [facility] [address] [id number] [place], Estelle S [phone] May, [place] [id number] [place] [phone] May, Screening for deficiency ane shiv Z13.0 [place] [id number] [place] [phone] May, Third trimester Z3 4.93 ; Previous section Z98.891 and 38 weeks gestation of Z3A.38 [place] [id number] [place] [phone] May, 37 weeks gestation of pregna ncy Z3A.37 ; Third trimester Z34.93 and Previous section Z98.891 [place] [id number] [place] [phone] Apr, 36 weeks gestation of pregna ncy Z3A.36 ; Third trimester Z34.93 and Previous section Z98.891 [place] [id number] [place] [phone] Apr, [place] [id number] [place] [phone] Apr, 34 weeks gestation of pregna ncy Z3A.34 and Third trimester Z34.93 [place] [id number] [place] [phone] Mar, 31 weeks gestation of pregna ncy Z3A.31 ; Encounter for immunization Z23 ; Previous section Z98.891 and Third trimester Z34.93 [place] [id number] [place] [phone] 14 Mar, 2017 Glucose tolerance test abnor mal R73.02 [place] [address] [facility] [id number] [address] [place] [phone] 07 Mar, 2017 29 weeks gestation of pregna ncy Z3A.29 ; Third trimester Z34.93 and Previous section Z98.891 [facility] [address] [facility] [id number] [address] [place] [phone] Jan, [facility] [address] [facility] [id number] [address] [place] [phone] Jan, Flank pain R10.9 ; Diseases of the digestive system complicating , second trimester O99.612 ; Second trimester Z33.1 and 21 weeks gestation of Z3A.21 [facility] [address] [facility] [id number] [address] [place] [phone] Dec, Normal in multigra stephanie Z34.80 ; 17 weeks gestation of Z3A.17 and Advanced maternal age in multigravida, second trimester O09.522 [facility] [id number] [place] [phone] 16 Nov, 2016 First trimester Z3 3.1 ; Normal in multigravida Z34.80 and 12 weeks gestation of Z3A.12 [facility] [address] [facility] [id number] [address] [place] [phone] Nov, [facility] [id number] [place] [phone] Oct, Encounter for test Z32.00 [facility] [address] [facility] [id number] [address] [place] [address] [phone] Apr, Dental examination V72.2 [facility] [address] [facility] [id number] [address] [place] [phone] Jan, [facility] [address] [facility] [id number] [address] [place] [phone] Jan, [facility] [address] [facility] [id number] [address] [place] [phone] Mar, [facility] [address] [facility] [id number] [address] [place] [phone] Mar, [facility] [id number] [place] [phone] Mar, [facility] [address] [facility] [id number] [address] [place] [phone] Mar, IMMUNIZATIONS No Known Immunizations SOCIAL HISTORY Never Assessed REASON FOR VISIT PLAN OF CARE VITAL SIGNS MEDICATIONS Unknown Medications RESULTS No Results PROCEDURES No Known procedures INSTRUCTIONS MEDICATIONS ADMINISTERED No Known Medications MEDICAL (GENERAL) HISTORY Type Description Date Surgical History section Surgical History Tubal ligation Hospitalization History Childbirth
--- OUTSIDE RECORDS SUMMARY | 2020-05-13 13:58 | XMS REPORT ---
Author Author [employer] [facility] [employer] [facility] Address [address] [address] Care Team Providers Care Soaking Pits Supervisor Name Role Phone SHUN DAMON Unavailable GONZALEZ MURO Unavailable MARISOL, SHUN Unavailable MARISOL, SHUN Unavailable GASARAH, SHUN Unavailable GASARAH, SHUN Unavailable GASARAH, SHUN Unavailable GASARAH, SHUN Unavailable MARISOL SHUN Unavailable ARIAS MCNAIR Unavailable Migration, Doctor Unavailable Unavailable SHUN DAMON MD Unavailable Unavailable Migration, Doctor Unavailable Unavailable FELICITA GAR Unavailable Unavailable PCP, NONE Unavailable Unavailable ROSE CLEVELAND Unavailable ROSE CLEVELAND Unavailable ROSE CLEVELAND Unavailable SHUN DAMON MD Unavailable Unavailable JABIER ARMENTA MD Unavailable Unavailable Unavailable Unavailable Unavailable Unavailable Unavailable Unavailable Unavailable Unavailable Allergies The data below is from unstructured sourcesNo known allergies.No known allergies.No known allergies.No known allergies.No known allergies. Unknown Allergies Unknown Allergies No Known Allergies No Known Allergies No Known Allergies No Known Allergies No Known Allergies No Known Allergies No Known Allergies No Known Allergies No Information No Information No Information No Information No Information No Information No Known Allergies No Known Allergies No Information No Information No Information No Information No Information No Information No Information No Information Encounters Encounter Date Encounter Type Encounter Diagnosis Care Provider Facility Start: Emergency department JABIER ARMENTA [facility] 05-13-2020 patient visit [facility] Start: Telephone encounter SHUN DAMON [facility] 02-06-2020 Start: [facility] Encounter for dental ROLANDO NEARING [facility] 08-27-2019 DENTAL examination and DENTAL cleaning without abnormal findings Start: [facility] Periapical abscess NATHALIA ANGELO [facility] 08-25-2019 CARE without sinus CARE Start: Patient encounter NONE PCP [facility] 08-25-2019 procedure [facility] ([id number]) Start: Patient encounter NONE PCP [facility] 10-31-2018 procedure [facility] ([id number]) Start: [facility] Dental caries, ROLANDO [facility]ING [facility] 10-31-2018 DENTAL unspecified DENTAL End: 10-31-2018 Start: Patient encounter NONE PCP [facility] 10-17-2018 procedure [facility] ([id number]) Start: [facility] Dental caries, [facility]OLANDO [facility]ING [facility] 10-17-2018 DENTAL unspecified DENTAL End: 10-17-2018 Start: [facility] Dizziness and ARIAS MCNAIR [facility] 08-20-2018 CARE giddiness CARE End: 08-20-2018 Start: Patient encounter SAFIA ECKERTSABRINA Not Av ailable ([id number]) 06-12-2017 procedure MD End: 06-14-2017 Start: Patient encounter SHUN DAMON MD Not Availab le ([id number]) 02-07-2017 procedure Start: Patient encounter SHUN DAMON MD Not Availab le ([id number]) 12-26-2016 procedure Start: Patient encounter SHUN DAMON MD [facility] [address] [facility] 12-26-2016 procedure [facility] Start: Emergency department FELICITA PRICE Not Available ([id number]) 12-30-2013 patient visit End: 12-30-2013 Encounter for dental Doctor [facility] examination and [facility] ([id number]) abnormal findings Medical Equipment No Information Goals No Information Immunizations The data below is from unstructured sources No Known Immunizations No Known Immunizations No Known Immunizations No Known Immunizations No Known Immunizations No Known Immunizations No Known Immunizations No Known Immunizations No Known Immunizations No Known Immunizations No Known Immunizations No Known Immunizations No Known Immunizations No Known Immunizations No Known Immunizations No Known Immunizations No Known Immunizations No Known Immunizations No Known Immunizations No Known Immunizations No Known Immunizations No Known Immunizations No Known Immunizations Interventions No Information Medications Medication Drug Dates Sig Sig (Original) Class(es) (Normalized) methylPREDNISolone 4 mg Corticoste Start: take 4 mg by M ethylPREDNISolone 4 mg 4 mg by Oral oral tablet roid 04-11-2012 mouth once route 1 time p er dayas directed Mar, (1 source) 2011 Active naproxen 500 mg oral Nonsteroid Start: take 1 tablet Nap rosyn 500 mg 1 tablet by Oral route 2 tablet al 04-11-2012 by mouth twice times per d ay Mar, Active (1 source) Anti-infla daily mmatory Drug Payers No Information Plan of Treatment The data below is from unstructured sources Discharge Date 05/17/17 10:40am Instructions/Education Provided OB O UTPATIENT DISCHARGE Prescriptions See Medication Section Discharge Date 06/14/17 11:15am Disposition 01 HOME, SELF-CARE Instructions/Education Provided C-Se ction ( Delivery) Forms Provided PDI Prescriptions See Medication Section Referrals (Unspecified) Entered Date: 06/14/2017 9:20am Note: 1 week incision check with Dr Rodrigez am on June 21Monday at 10:30am at his office. 6week follow up appt with Dr Damon at [facility] on Monday at 11:00am Activity Details Follow Up 4 Weeks Marisol Reason: Activity Details Follow Up 2 Weeks Reason: Activity Details Follow Up 1 Year with Marisol for lucia al well woman Reason: Activity Details Follow Up Follow up as needed with P CP or if symptoms worsening. Reason: Problems Active Problems Problem Problem Date Last Documented Episodic/Chr Provider Classificati Recorded Date onic on Conditions Dizziness and giddiness ; Episodic CH RISTY associated Translations: [ - Vertigo R42] FARRUKHR CHRISTIAN with Other Phone: dizziness or [phone] vertigo 3 (6 sources) Disorders of Dental caries, unspecified ; Episodic Doctor teeth and Translations: [Periapical abscess M igration jaw without sinus] (16 sources) Previous Maternal care for low transverse Episodic SAFIA scar from previous REJI BELTRÁN (4 sources) delivery Residual 39 weeks gestation of Episodic SAFIA codes; SABRINA unclassified MD (5 sources) Residual 20 weeks gestation of Episodic SHUN GAULT codes; unclassified (1 source) Umbilical Labor and delivery complicated by Episodic SAFIA cord cord around neck, without HIGGINBOT HAM complication compression, not applicable or MD (5 sources) unspecified Past or Other Problems Problem Problem Date Last Documented Episodic/Chr Provider Classificati Recorded Date onic on Hemorrhage Antepartum hemorrhage, unspecified, Episodic SHUN GAULT during third trimester ; abruptio placenta; placenta previa (2 sources) Other lower Shortness of breath Episodic FELICITA respiratory MARY ANN PA disease (3 sources) Residual 35 weeks gestation of Episodic SHUN GAULT codes; unclassified (2 sources) Procedures Date Procedure Procedure Detail Performing Cl inician Start: Radex elbow 2 ROSE CLEVELAND 04-11-2012 views Other Phone: EXTRACTION OF POC, SAFIA BENNETT MD LOW CERVICAL, OPEN AP Results Test Name Value Interpreta Reference Facilit Date tion Range y Time laboratory on 2020-05-13 Albumin [Mass/Vol] 4.4 g/dL Negative 3.2-4.5 PENDING 04-29 5-2 g/dL [facility] 07:35-0 ([id number]) 400 ALP [Catalytic 104 U/L Negative 40-136 U/L PENDING activity/Vol] [facility] 07:35-0 ([id number]) 400 ALT [Catalytic 37 U/L Negative 0-55 U/L PENDING activity/Vol] [facility] 07:35-0 ([id number]) 400 Amorphous sediment MOD JAKE PHOSPHATE Abnormal PENDING LM Ql (Urine sed) [facility] 07:40-0 ([id number]) 400 Anion gap 9 mmol/L Negative 5-14 PENDING [Moles/Vol] mmol/L [facility] 07:35-0 ([id number]) 400 AST [Catalytic 31 U/L Negative 5-34 U/L PENDING activity/Vol] [facility] 07:35-0 ([id number]) 400 Bacteria LM Ql TRACE Invalid PENDING (Urine sed) Interpreta LOCATIO 020 tion Code N [facility] 07:40-0 ([id number]) 400 Basophils (Bld) 0.0 10*3/uL Negative 0.0-0.1 PENDING 05-13 [#/Vol] 10*3/uL [facility] 07:35-0 ([id number]) 400 Basophils/100 WBC 1 % Negative 0-10 % PENDING 05-13 (Bld) [facility] 07:35-0 ([id number]) 400 Bilirubin [Mass/Vol] 0.5 mg/dL Negative 0.1-1.0 PENDING mg/dL [facility] 07:35-0 ([id number]) 400 Bilirubin Ql (U) Negative Invalid NEGATIVE PENDING Interpreta [facility] 020 tion Code N [facility] 07:40-0 ([id number]) 400 Calcium [Mass/Vol] 9.2 mg/dL Negative 8.5-10.1 PENDING 07-1 5-2 mg/dL [facility] 020 [facility] 07:35-0 ([id number]) 400 Calcium [Mass/Vol] 8.9 mg/dL Negative 8.5-10.1 PENDING 07-1 5-2 mg/dL [facility] 07:35-0 ([id number]) 400 Casts LM Ql (Urine NONE Invalid PENDING sed) Interpreta [facility] 020 tion Code N [facility] 07:40-0 ([id number]) 400 Chloride [Moles/Vol] 106 mmol/L Negative 98-107 PENDING 0 7-15-2 mmol/L [facility] 07:35-0 ([id number]) 400 Clarity (U) SL CLOUDY Invalid PENDING Interpreta [facility] 020 tion Code N [facility] 07:40-0 ([id number]) 400 CO2 [Moles/Vol] 25 mmol/L Negative 21-32 PENDING mmol/L [facility] 07:35-0 ([id number]) 400 Color (U) YELLOW Invalid PENDING Interpreta [facility] 020 tion Code N [facility] 07:40-0 ([id number]) 400 Creatinine 0.97 mg/dL Negative 0.60-1.30 PENDING [Mass/Vol] mg/dL [facility] 07:35-0 ([id number]) 400 Creatinine and > Invalid PENDING Glomerular Interpreta [facility] 020 filtration tion Code N [facility] 07:35-0 rate.predicted panel (17110) 400 - Serum, Plasma or Blood Crystals LM Ql PRESENT Abnormal PENDING (Urine sed) [facility] 07:40-0 ([id number]) 400 Eosinophils (Bld) 0.2 10*3/uL Negative 0.0-0.3 PENDING [#/Vol] 10*3/uL [facility] 07:35-0 ([id number]) 400 Eosinophils/100 WBC 3 % Negative 0-10 % PENDING (Bld) [facility] 07:35-0 ([id number]) 400 Epithelial 5-10 Invalid PENDING cells.squamous LM Ql Interpreta [facility] 020 (Urine sed) tion Code N [facility] 07:40-0 ([id number]) 400 Erythrocyte 12.8 % Negative 10.0-14.5 PENDING distribution width % [facility] 020 (RBC) [Ratio] [facility] 07:35-0 ([id number]) 400 Free T4 [Mass/Vol] 0.94 ng/dL Negative 0.70-1.48 PENDING ng/dL [facility] 0[facility] 07:35-0 ([id number]) 400 Glucose [Mass/Vol] 102 mg/dL Negative 70-105 PENDING 04-29 5-2 mg/dL [facility] 07:35-0 ([id number]) 400 Glucose Auto test Negative Invalid NEGATIVE PENDING 05-13 strip Ql (U) Interpreta [facility] 020 tion Code N [facility] 07:40-0 ([id number]) 400 HCG ( test) Negative Invalid NEGATIVE PENDING Ql Interpreta [facility] 020 tion Code N [facility] 07:35-0 ([id number]) 400 Hematocrit (Bld) 43 % Negative 35-52 % PENDING [Volume fraction] [facility] 07:35-0 ([id number]) 400 Hemoglobin (Bld) 15.1 g/dL Negative 11.5-16.0 PENDING [Mass/Vol] g/dL [facility] 020 [facility] 07:35-0 ([id number]) 400 Ketones Auto test Negative Invalid NEGATIVE PENDING 05-13 strip Ql (U) Interpreta [facility] 020 tion Code N [facility] 07:40-0 ([id number]) 400 Leukocyte esterase Negative Invalid NEGATIVE PENDING 04-29 Test strip Ql (U) Interpreta [facility] 020 tion Code N [facility] 07:40-0 ([id number]) 400 Lymphocytes (Bld) 2.1 10*3/uL Negative 1.0-4.0 PENDING [#/Vol] 10*3 LOC[facility]IO 020 [facility] 07:35-0 ([id number]) 400 Lymphocytes/100 WBC 29 % Negative 12-44 % PENDING (Bld) [facility]IO 020 [facility] 07:35-0 ([id number]) 400 Magnesium [Mass/Vol] 2.1 mg/dL Negative 1.6-2.4 PENDING mg/dL [facility] 020 [facility] 07:35-0 ([id number]) 400 MCH (RBC) [Entitic 32 pg Negative 25-34 pg PENDING 04-29 mass] LOC[facility]IO 020 [facility] 07:35-0 ([id number]) 400 MCHC (RBC) 35 g/dL Negative 32-36 g/dL PENDING [Mass/Vol] LOCATIO 020 [facility] 07:35-0 ([id number]) 400 MCV (RBC) [Entitic 91 Negative 80-99 PENDING 04-29 vol] [foz_us] [facility] 020 [facility] 07:35-0 ([id number]) 400 Monocytes (Bld) 0.7 10*3/uL Negative 0.0-1.0 PENDING 05-13 [#/Vol] 10*3 [facility]IO 020 [facility] 07:35-0 ([id number]) 400 Monocytes/100 WBC 10 % Negative 0-12 % PENDING 05-13 (Bld) [facility] 07:35-0 ([id number]) 400 Mucus Ql (Urine sed) Negative Invalid PENDING 05-13 Interpreta [facility] 020 tion Code N [facility] 07:40-0 ([id number]) 400 Neutrophils (Bld) 4.1 10*3/uL Negative 1.8-7.8 PENDING [#/Vol] 10*3 [facility] 0[facility] 07:35-0 ([id number]) 400 Neutrophils/100 WBC 57 % Negative 42-75 % PENDING (Bld) [facility] 07:35-0 ([id number]) 400 Nitrite Ql (U) Negative Invalid NEGATIVE PENDING Interpreta [facility] 020 tion Code N [facility] 07:40-0 ([id number]) 400 pH (U) 7.5 [pH] Invalid 5-9 PENDING Interpreta [facility] 020 tion Code N [facility] 07:40-0 ([id number]) 400 Platelet mean volume 10.8 High 7.4-10.4 PENDING (Bld) [Entitic vol] [foz_us] [facility] 0[facility] 07:35-0 ([id number]) 400 Platelets (Bld) 265 10*3/uL Negative 130-400 PENDING 05-13 [#/Vol] 10*3/uL [facility] 020 [facility] 07:35-0 (69594) 400 Potassium 3.7 mmol/L Negative 3.6-5.0 PENDING [Moles/Vol] mmol/L [facility] 020 [facility] 07:35-0 ([id number]) 400 Protein [Mass/Vol] 7.5 g/dL Negative 6.4-8.2 PENDING 04-29 5-2 g/dL [facility] 020 [facility] 07:35-0 ([id number]) 400 Protein Ql (U) Negative Invalid NEGATIVE PENDING Interpreta [facility] 020 tion Code N [facility] 07:40-0 ([id number]) 400 RBC (Bld) [#/Vol] 4.72 10*6/uL Negative 4.35-5.85 PENDING 10*6/uL [facility] 020 [facility] 07:35-0 ([id number]) 400 RBC LM.HPF (Urine Abnormal [HPF] PENDING sed) [#/Area] [facility] 07:40-0 ([id number]) 400 RBC Ql (U) 1+ Abnormal NEGATIVE PENDING [facility] 020 [facility] 07:40-0 (90984) 400 Sodium [Moles/Vol] 140 mmol/L Negative 135-145 PENDING mmol/L [facility] 0[facility] 07:35-0 (39091) 400 Specific gravity (U) 1.020 Invalid 1.016-1.02 PENDING 0 [Rel density] Interpreta 2 [facility] 020 tion Code N [facility] 07:40-0 ([id number]) 400 TSH Qn 1.58 m[IU]/L Negative 0.35-4.94 PENDING u[iU]/mL [facility] 0[facility] 07:35-0 (42908) 400 Urea nitrogen 13 mg/dL Negative 7-18 mg/dL PENDING [Mass/Vol] [facility] 020 [facility] 07:35-0 ([id number]) 400 Urea 13 mg/mg Invalid PENDING nitrogen/Creatinine Interpreta [facility] 020 [Mass ratio] tion Code N [facility] 07:35-0 (53577) 400 Urinalysis complete NO Invalid PENDING W Reflex Culture Interpreta [facility] 020 panel - Urine tion Code N [facility] 07:40-0 ([id number]) 400 Urobilinogen (U) 0.2 mg/dL Invalid < = 1.0 PENDING [Mass/Vol] Interpreta mg/dL [facility] 020 tion Code N [facility] 07:40-0 (69106) 400 WBC (Bld) [#/Vol] 7.3 10*3/uL Negative 4.3-11.0 PENDING 10*3/uL [facility] 020 [facility] 07:35-0 (69158) 400 WBC LM.HPF (Urine NONE Invalid PENDING sed) [#/Area] Interpreta [facility] 020 tion Code N [facility] 07:40-0 ([id number]) 400 laboratory on 2017-05-26 Bacteria identified Note Invalid Not Aer cx Nom (Genital Interpreta Availab 017 specimen) tion Code le 14:56-0 (01721) 400 laboratory on 2017-04-06 Basophils (Bld) 0.0 10*3/uL Invalid 0.0-0.2 Not 04-06 [#/Vol] Interpreta x10E3/uL Availab 017 tion Code le 08:17-0 ([id number]) 400 Basophils/100 WBC 0 % Invalid % Not 04-06 (Bld) Interpreta Availab 017 tion Code le 08:17-0 (04504) 400 Eosinophils (Bld) 0.1 10*3/uL Invalid 0.0-0.4 Not 05-31 [#/Vol] Interpreta x10E3/uL Availab 017 tion Code le 08:17-0 ([id number]) 400 Eosinophils/100 WBC 1 % Invalid % Not 05-31 (Bld) Interpreta Availab 017 tion Code le 08:17-0 (91098) 400 Erythrocyte 13.6 % Invalid 12.3-15.4 Not distribution width Interpreta % Availab 017 (RBC) [Ratio] tion Code le 08:17-0 (41932) 400 Glucose 1 Hr post 50 145 mg/dL High 65-139 Not g glucose PO mg/dL Availab 017 [Mass/Vol] le 10:01-0 (02532) 400 Hematocrit (Bld) 35.9 % Invalid 34.0-46.6 Not [Volume fraction] Interpreta % Availab 017 tion Code le 08:17-0 (70288) 400 Hemoglobin (Bld) 12.1 g/dL Invalid 11.1-15.9 Not [Mass/Vol] Interpreta g/dL Availab 017 tion Code le 08:17-0 (76203) 400 Immature 0.0 10*3/uL Invalid 0.0-0.1 Not granulocytes (Bld) Interpreta x10E3/uL Availab 017 [#/Vol] tion Code le 08:17-0 ([id number]) 400 Immature 0 % Invalid % Not granulocytes/100 WBC Interpreta Availab 017 (Bld) tion Code le 08:17-0 (12808) 400 Lymphocytes (Bld) 1.9 10*3/uL Invalid 0.7-3.1 Not 05-31 [#/Vol] Interpreta x10E3/uL Availab 017 tion Code le 08:17-0 (53906) 400 Lymphocytes/100 WBC 19 % Invalid % Not 05-31 (Bld) Interpreta Availab 017 tion Code le 08:17-0 (04533) 400 MCH (RBC) [Entitic 31.5 pg Invalid 26.6-33.0 Not 06-0 8-2 mass] Interpreta pg Availab 017 tion Code le 08:17-0 (18497) 400 MCHC (RBC) 33.7 g/dL Invalid 31.5-35.7 Not [Mass/Vol] Interpreta g/dL Availab 017 tion Code le 08:17-0 (81278) 400 MCV (RBC) [Entitic 94 fL Invalid 79-97 fL Not 06-0 8-2 vol] Interpreta Availab 017 tion Code le 08:17-0 (60258) 400 Monocytes (Bld) 0.6 10*3/uL Invalid 0.1-0.9 Not 04-06 [#/Vol] Interpreta x10E3/uL Availab 017 tion Code le 08:17-0 (01188) 400 Monocytes/100 WBC 6 % Invalid % Not 04-06 (Bld) Interpreta Availab 017 tion Code le 08:17-0 (18603) 400 Neutrophils (Bld) 7.7 10*3/uL High 1.4-7.0 Not 05-31 [#/Vol] x10E3/uL Availab 017 le 08:17-0 ([id number]) 400 Neutrophils/100 WBC 74 % Invalid % Not 05-31 (Bld) Interpreta Availab 017 tion Code le 08:17-0 (04344) 400 Platelets (Bld) 214 10*3/uL Invalid 150-379 Not 04-06 [#/Vol] Interpreta x10E3/uL Availab 017 tion Code le 08:17-0 (31422) 400 RBC (Bld) [#/Vol] 3.84 10*6/uL Invalid 3.77-5.28 Not Interpreta x10E6/uL Availab 017 tion Code le 08:17-0 (86210) 400 WBC (Bld) [#/Vol] 10.3 10*3/uL Invalid 3.4-10.8 Not Interpreta x10E3/uL Availab 017 tion Code le 08:17-0 (24495) 400 laboratory on 2017-02-11 Bacteria identified Note Invalid Not Cx Nom (U) Interpreta Availab 017 tion Code le 01:13-0 ([id number]) 400 laboratory on 2016-12-21 HPV Negative Invalid Negative Not 16+18+31+33+35+39+45 Interpreta Availab 017 +51+52+56+58+59+68 tion Code le 09:14-0 DNA Probe+sig amp Ql (82297) 500 (Cvx) not yet categorized on 2016-12-20 Diagnosis ICD code Comment Invalid Not [Identifier] Interpreta Availab 017 tion Code le 14:00-0 (35612) 500 Pathology report Comment Invalid Not final diagnosis Interpreta Availab 017 Narrative tion Code le 14:00-0 (05336) 500 laboratory on 2016-12-20 [place] Weigher Cyto Comment Invalid Not stain Nom (Cvx/Vag) Interpreta Availab 017 [ID] tion Code le 14:00-0 (94635) 500 Microscopic . Invalid Not observation Other Interpreta Availab 017 stain Nom (Unsp tion Code le 14:00-0 spec) (04473) 500 Statement of Comment Invalid Not adequacy Cyto stain Interpreta Availab 017 (Cvx/Vag) [Interp] tion Code le 14:00-0 (53910) 500 laboratory on 2016-12-18 Bacteria identified Note Invalid Not Aer cx Nom (Genital Interpreta Availab 017 specimen) tion Code le 16:48-0 (29293) 500 laboratory on 2016-12-17 Bacteria identified Note Invalid Not Cx Nom (U) Interpreta Availab 017 tion Code le 01:27-0 (19865) 500 laboratory on 2016-12-16 ABO group Nom (Bld) O Invalid Not Interpreta Availab 017 tion Code le 12:37-0 (65071) 500 Basophils (Bld) 0.0 10*3/uL Invalid 0.0-0.2 Not 12-16 [#/Vol] Interpreta x10E3/uL Availab 017 tion Code le 07:42-0 (19724) 500 Basophils/100 WBC 0 % Invalid % Not 12-16 (Bld) Interpreta Availab 017 tion Code le 07:42-0 (69903) 500 Blood group antibody Negative Invalid Negative Not screen Ql Interpreta Availab 017 tion Code le 12:37-0 (23675) 500 Eosinophils (Bld) 0.1 10*3/uL Invalid 0.0-0.4 Not [#/Vol] Interpreta x10E3/uL Availab 017 tion Code le 07:42-0 (39158) 500 Eosinophils/100 WBC 2 % Invalid % Not (Bld) Interpreta Availab 017 tion Code le 07:42-0 (05419) 500 Erythrocyte 13.4 % Invalid 12.3-15.4 Not distribution width Interpreta % Availab 017 (RBC) [Ratio] tion Code le 07:42-0 (49509) 500 HbA1c (Bld) [Mass 5.3 % Invalid 4.8-5.6 % Not 12-16 fraction] Interpreta Availab 017 tion Code le 12:16-0 (64921) 500 Hematocrit (Bld) 40.5 % Invalid 34.0-46.6 Not [Volume fraction] Interpreta % Availab 017 tion Code le 07:42-0 (59608) 500 Hemoglobin (Bld) 13.6 g/dL Invalid 11.1-15.9 Not [Mass/Vol] Interpreta g/dL Availab 017 tion Code le 07:42-0 (66513) 500 Immature 0.0 10*3/uL Invalid 0.0-0.1 Not granulocytes (Bld) Interpreta x10E3/uL Availab 017 [#/Vol] tion Code le 07:42-0 (85941) 500 Immature 0 % Invalid % Not granulocytes/100 WBC Interpreta Availab 017 (Bld) tion Code le 07:42-0 (44310) 500 Lymphocytes (Bld) 1.7 10*3/uL Invalid 0.7-3.1 Not [#/Vol] Interpreta x10E3/uL Availab 017 tion Code le 07:42-0 (34599) 500 Lymphocytes/100 WBC 21 % Invalid % Not (Bld) Interpreta Availab 017 tion Code le 07:42-0 (96375) 500 MCH (RBC) [Entitic 31.4 pg Invalid 26.6-33.0 Not 11-30 mass] Interpreta pg Availab 017 tion Code le 07:42-0 (20529) 500 MCHC (RBC) 33.6 g/dL Invalid 31.5-35.7 Not [Mass/Vol] Interpreta g/dL Availab 017 tion Code le 07:42-0 (52810) 500 MCV (RBC) [Entitic 94 fL Invalid 79-97 fL Not 11-302 vol] Interpreta Availab 017 tion Code le 07:42-0 (08747) 500 Monocytes (Bld) 0.6 10*3/uL Invalid 0.1-0.9 Not 12-16 [#/Vol] Interpreta x10E3/uL Availab 017 tion Code le 07:42-0 (19292) 500 Monocytes/100 WBC 7 % Invalid % Not 12-16 (Bld) Interpreta Availab 017 tion Code le 07:42-0 (59364) 500 Neutrophils (Bld) 5.5 10*3/uL Invalid 1.4-7.0 Not [#/Vol] Interpreta x10E3/uL Availab 017 tion Code le 07:42-0 (22724) 500 Neutrophils/100 WBC 70 % Invalid % Not (Bld) Interpreta Availab 017 tion Code le 07:42-0 (62843) 500 Platelets (Bld) 256 10*3/uL Invalid 150-379 Not 12-16 [#/Vol] Interpreta x10E3/uL Availab 017 tion Code le 07:42-0 (22275) 500 RBC (Bld) [#/Vol] 4.33 10*6/uL Invalid 3.77-5.28 Not Interpreta x10E6/uL Availab 017 tion Code le 07:42-0 (24027) 500 Rh Nom (Bld) Positive Invalid Not Interpreta Availab 017 tion Code le 12:37-0 (74330) 500 Rubella virus IgG Qn 2.45 Invalid Immune Not (S) Interpreta >0.99 Availab 017 tion Code index le 14:41-0 (32111) 500 TSH Qn 1.090 Invalid 0.450-4.50 Not Interpreta 0 uIU/mL Availab 017 tion Code le 09:29-0 (80693) 500 WBC (Bld) [#/Vol] 7.9 10*3/uL Invalid 3.4-10.8 Not Interpreta x10E3/uL Availab 017 tion Code le 07:42-0 (97800) 500 Social History No Information Vital Signs Date Time Vital Sign Value Performing Clinician Facil it 08-20-2018 Body height 165.1 cm [facility] 18:30-0400 Other Phone: [facility] ([id number]) 08-20-2018 Body mass index 39.97 kg/m2 [facility] 18:30-0400 (BMI) [Ratio] Other Phone: [facility] ([id number]) 08-20-2018 Body temperature 97.8 [degF] [facility] 18:30-0400 Other Phone: [facility] ([id number]) 08-20-2018 Body weight 108.95 kg [facility] 18:30-0400 Other Phone: [facility] ([id number]) 04-11-2012 Body height 165.1 cm [facility] 12:0400 Other Phone: [facility] ([id number]) 04-11-2012 Body temperature 98 [degF] [facility] 12:040 Other Phone: [facility] ([id number]) 04-11-2012 Body weight 101.24 kg [facility] [id number] Other Phone: [facility] ([id number]) Functional Status The data below is from unstructured sourcesNo functional status information available.No functional status information available.No functional status information available.No functional status information available.No functional status information available. Mental Status No Information Clinical Note 2016-12-20 Note Date & Note Facility Type 12-20-2016 Comment (L) The Pap smear is a screening test Not Available Note designed to aid in the detection of~pre malignant and malignant (87922) conditions of the uterine cervix. It is not a~diagnostic procedure and should not be used as the sole mean s of detecting~cervical cancer. Both false-positive and false-n egative reports do occur.~ Advance Directives Directive Response Recor ded Date/Time Advance Directives No 9:18am Organ Donor Yes 05/17/17 9:18am Resuscitation Status Full Code 05/17/17 9:18am Directive Response Recor ded Date/Time Advance Directives No 12:11pm Health Care Power of Grooming Assistant No 06/07/17 12:11pm Organ Donor Yes 06/07/17 12:11pm Resuscitation Status Full Code 06/07/17 12:11pm Directive Response Recor ded Date/Time Advance Directives No 11:30am Health Care Power of Grooming Assistant No 06/12/17 11:30am Organ Donor Yes 06/12/17 11:30am Resuscitation Status Full Code 06/12/17 11:30am Discharge Instructions No hospital discharge instruction information available.No hospital discharge instruction information available.No hospital discharge instruction information available. Additional Source Comments This clinical document has been generated using [employer] software that has been certified by the Office of the National Coordinator for Health Information Technology (ONC 15.99.04.3023.Diam.31.00.0.734220) and the National Committee for Commercial Agent (NCQA, as an eMeasure certified technology). FOR RECORDS PERTAINING TO PATIENTS WHO ARE OR HAVE BEEN ENROLLED IN A CHEMICAL D EPENDENCY/SUBSTANCE ABUSE PROGRAM, SOME INFORMATION MAY BE OMITTED. This clinica l summary was aggregated from multiple sources. Caution should be exercised in using it in the provision of clinical care. This summary normalizes information from multiple sources, and as a consequence, information in this document may ma terially change the coding, format and clinical context of patient data. In mathew tion, data may be omitted in some cases. CLINICAL DECISIONS SHOULD BE BASED ON T HE PRIMARY CLINICAL RECORDS. [facility]. provides no warranty or guara ntee of the accuracy or completeness of information in this document.The followi ng information is based on time limited clinical information UNRECOGNIZED CONTENT PROVIDED BELOW FOR UNRECOGNIZED SECTION REASON FOR VISIT Dizziness, pt states that she has been dizzy for over a week but today got reall y bad, felt like she was going to pass out. Pt states she had a tooth ache two w eeks ago. Eliud DE LA TORREENETV-ErfTYL-Vvj
--- OUTSIDE RECORDS SUMMARY | 2020-05-13 13:58 | XMS REPORT ---
Author Author Cleveland CLEVELAND Organization [facility] Address [address] [place] [address] Care Team Providers Care Drafter Engineering Name Role Phone ROSE CLEVELAND Unavailable PROBLEMS No Known Problems ALLERGIES No Information ENCOUNTERS Encounter Location Date Diagnosis [facility] [id number] [address] [place] [phone] Jan, [facility] [id number] [place] [phone] Jul, Dental examination Z01.20 an d Caries K02.9 [facility] [address] [id number] [address] [place] [phone] Jul, Tooth infection K04.7 [facility] [address] [place] [phone] Oct, Caries K02.9 [facility] [id number] [place] [phone] Sep, Caries K02.9 and Dental exam ination Z01.20 [facility] [id number] [place] [phone] Jul, Vertigo R42 [facility] [id number] [place] [phone] Nov, [facility] [address] [facility] [id number] [address] [place] [phone] Oct, [facility] [address] [facility] [id number] [address] [place] [phone] Jun, Encounter for vis it Z39.2 and Sinus congestion R09.81 [facility] [address] [id number] Estelle CAICEDO S [id number] May, [facility] [address] [id number] [place], Estelle S [phone] May, [place] [id number] [place] [phone] May, Screening for deficiency ane shiv Z13.0 [place] [id number] [place] [phone] May, Third trimester Z3 4.93 ; Previous section Z98.891 and 38 weeks gestation of Z3A.38 [place] [id number] [place] [phone] May, 37 weeks gestation of pregna ncy Z3A.37 ; Third trimester Z34.93 and Previous section Z98.891 [place] [address] [id number] [place] [phone] Apr, 36 weeks gestation of pregna ncy Z3A.36 ; Third trimester Z34.93 and Previous section Z98.891 [place] [address] [place] [phone] Apr, [place] [id number] [place] [phone] Apr, 34 weeks gestation of pregna ncy Z3A.34 and Third trimester Z34.93 [place] [address] [id number] [place] [phone] Mar, 31 weeks gestation of pregna ncy Z3A.31 ; Encounter for immunization Z23 ; Previous section Z98.891 and Third trimester Z34.93 [place] [id number] [place] [phone] 14 Mar, 2017 Glucose tolerance test abnor mal R73.02 [place] [address] [facility] [id number] [address] [place] [phone] 07 Mar, 2017 29 weeks gestation of pregna ncy Z3A.29 ; Third trimester Z34.93 and Previous section Z98.891 [facility] [address] [facility] [id number] [address] [place] [phone] Jan, [facility] [address] [facility] [id number] [address] [place] [phone] Jan, Flank pain R10.9 ; Diseases of the digestive system complicating , second trimester O99.612 ; Second trimester Z33.1 and 21 weeks gestation of Z3A.21 [facility] [address] [facility] [id number] [address] [place] [phone] Dec, Normal in multigra stephanie Z34.80 ; 17 weeks gestation of Z3A.17 and Advanced maternal age in multigravida, second trimester O09.522 [facility] [id number] [place] [phone] 16 Nov, 2016 First trimester Z3 3.1 ; Normal in multigravida Z34.80 and 12 weeks gestation of Z3A.12 [facility] [address] [facility] [id number] [address] [place] [phone] Nov, [facility] [id number] [place] [phone] Oct, Encounter for test Z32.00 [facility] [address] [facility] [id number] [address] [place] [address] [phone] Apr, Dental examination V72.2 [facility] [address] [facility] [id number] [address] [place] [phone] Jan, [facility] [address] [facility] [id number] [address] [place] [phone] Jan, [facility] [address] [facility] [id number] [address] [place] [phone] Mar, [facility] [address] [facility] [id number] [address] [place] [phone] Mar, [facility] [id number] [place] [phone] Mar, [facility] [address] [facility] [id number] [address] [place] [phone] Mar, IMMUNIZATIONS No Known Immunizations SOCIAL HISTORY Never Assessed REASON FOR VISIT PLAN OF CARE VITAL SIGNS Height 65 in 2012-04-11 Weight 223.19 lbs 2012-04-11 Temperature 98 degrees Fahrenheit 2012-04-11 Heart Rate 68 bpm 2012-04-11 Respiratory Rate 16 2012-04-11 Blood pressure systolic 100 mmHg 2012-04-11 Blood pressure diastolic 68 mmHg 2012-04-11 MEDICATIONS Unknown Medications RESULTS No Results PROCEDURES Procedure Date Ordered Result Body Site X-RAY EXAM OF ELBOW April 11, 2012 INSTRUCTIONS MEDICATIONS ADMINISTERED No Known Medications MEDICAL (GENERAL) HISTORY Type Description Date Surgical History section Surgical History Tubal ligation Hospitalization History Childbirth
--- OUTSIDE RECORDS SUMMARY | 2020-05-13 13:59 | XMS REPORT ---
Author Author Cleveland DAMON Organization [facility] Address [address] [place] [address] Care Team Providers Care Wastewater Treatment Plant Instructor Name Role Phone SHUN DAMON Unavailable PROBLEMS Type Condition ICD9-CM Code [id number] Code Onset Dates Condition S tatus SNOMED Code Problem Previous section Z98.891 Acti ve [id number] Problem Unspecified site of sprain and strain 848.9 Active [id number] ALLERGIES No Known Allergies ENCOUNTERS Encounter Location Date Diagnosis [place] [id number] [id number] [place] [phone] Nov, [facility] [address] [id number] [address] [place] [phone] Oct, [facility] [address] [id number] [address] [place] [phone] Jun, Encounter for vis it Z39.2 and Sinus congestion R09.81 [facility] [address] [facility] [id number] [place], S [phone] May, [facility] [address] [id number] [place], S [phone] May, [facility] [address] [id number] [address] [place] [phone] May, Screening for deficiency ane shiv Z13.0 [place] [address] [facility] [id number] [address] [place] [address] May, Third trimester Z3 4.93 ; Previous section Z98.891 and 38 weeks gestation of Z3A.38 [facility] [address] [id number] [address] [place] [phone] May, 37 weeks gestation of pregna ncy Z3A.37 ; Third trimester Z34.93 and Previous section Z98.891 [place] [address] [id number] [address] [place] [address] Apr, 36 weeks gestation of pregna ncy Z3A.36 ; Third trimester Z34.93 and Previous section Z98.891 [place] [address] [place] [phone] Apr, [place] [id number] [place] [phone] Apr, 34 weeks gestation of pregna ncy Z3A.34 and Third trimester Z34.93 [place] [address] [phone] 20 Mar, 2017 31 weeks gestation of pregna ncy Z3A.31 ; Encounter for immunization Z23 ; Previous section Z98.891 and Third trimester Z34.93 [place] [address] [phone] 14 Mar, 2017 Glucose tolerance test abnor mal R73.02 [place] [address] [phone] 07 Mar, 2017 29 weeks gestation of pregna ncy Z3A.29 ; Third trimester Z34.93 and Previous section Z98.891 [place] [address] [id number] [address] [place] [phone] Jan, [place] [address] [address] 13 Jan, 2017 Flank pain R10.9 ; Diseases of the digestive system complicating , second trimester O99.612 ; Second trimester Z33.1 and 21 weeks gestation of Z3A.21 [place] [address] [address] [id number] [place] [phone] 16 Dec, 2016 Normal in multigra stephanie Z34.80 ; 17 weeks gestation of Z3A.17 and Advanced maternal age in multigravida, second trimester O09.522 [facility] [address] [facility] [id number] [address] [place] [phone] 16 Nov, 2016 First trimester Z3 3.1 ; Normal in multigravida Z34.80 and 12 weeks gestation of Z3A.12 [facility] [address] [id number] [address] [place] [phone] Nov, [facility] [address] [id number] [address] [place] [phone] Oct, Encounter for test Z32.00 [facility] [address] [id number] [address] [place] [address] [phone] Apr, Dental examination V72.2 [facility] [address] [id number] [address] [place] [phone] Jan, [facility] [address] [facility] [id number] [address] [place] [phone] Jan, [facility] [address] [id number] [address] [place] [phone] Mar, [facility] [address] [facility] [id number] [address] [place] [phone] Mar, [facility] [address] [facility] [id number] [address] [place] [phone] Mar, [facility] [address] [facility] [id number] [address] [place] [phone] Mar, IMMUNIZATIONS No Known Immunizations SOCIAL HISTORY Never Assessed REASON FOR VISIT ob 3wk f/u, PT still has a head cold and [facility] OF CARE Activity Details Follow Up 2 Weeks Reason: VITAL SIGNS Height 65 in 2017-05-09 Weight 236.8 lbs 2017-05-09 Temperature 97.7 degrees Fahrenheit 2017-05-09 Heart Rate 78 bpm 2017-05-09 Respiratory Rate 20 2017-05-09 BMI 39.406 kg/m2 2017-05-09 Blood pressure systolic 110 mmHg 2017-05-09 Blood pressure diastolic 72 mmHg 2017-05-09 MEDICATIONS Medication Instructions Dosage Frequency Start Date End Date Duration S sera Willard Minter-3 DHA - Active Robitussin 12 Hour Cough Active Benadryl Active RESULTS Name Result Date Reference Range UA OB DIP (IN HOUSE) 2017-05-09 Glucose negative Protein Trace PROCEDURES Procedure Date Ordered Result Body Site URINE-NO MICRO May 09, 2017 INSTRUCTIONS MEDICATIONS ADMINISTERED No Known Medications MEDICAL (GENERAL) HISTORY Type Description Date Surgical History section Surgical History Tubal ligation Hospitalization History Childbirth
--- OUTSIDE RECORDS SUMMARY | 2020-05-13 13:59 | XMS REPORT ---
Author Author Cleveland DAMON Organization [facility] [place] Address [address] [place] [address] Care Team Providers Care Assisted Sales Representative Name Role Phone SHUN DAMON Unavailable PROBLEMS Type Condition ICD9-CM Code [id number] Code Onset Dates Condition S tatus SNOMED Code Problem Previous section Z98.891 Acti ve [id number] Problem Unspecified site of sprain and strain 848.9 Active [id number] ALLERGIES No Information ENCOUNTERS Encounter Location Date Diagnosis [place] [address] [address] [id number] [place] [phone] Jan, [place] [address] [place] [address] [id number] [place] [phone] Nov, [facility] [place] [address] [id number] [address] [place] [phone] Oct, [place] [id number] [place] [phone] Jun, Encounter for vis it Z39.2 and Sinus congestion R09.[id number] [place] [address], S [phone] May, [facility] [id number] [place] [address] S [phone] May, [place] [address] [place] [address] [id number] [place] [phone] May, Screening for deficiency ane shiv Z13.0 [place] [address] [address] [id number] [address] [place] [phone] May, Third trimester Z3 4.93 ; Previous section Z98.891 and 38 weeks gestation of Z3A.38 [place] [address] [place] [address] [id number] [place] [phone] May, 37 weeks gestation of pregna ncy Z3A.37 ; Third trimester Z34.93 and Previous section Z98.891 [place] [address] [place] [address] [id number] [place] [phone] Apr, 36 weeks gestation of pregna ncy Z3A.36 ; Third trimester Z34.93 and Previous section Z98.891 [place] [address] [place] [id number] [place] [phone] Apr, [place] [address] [place] [id number] [place] [phone] Apr, 34 weeks gestation of pregna ncy Z3A.34 and Third trimester Z34.93 [place] [address] [place] [id number] [place] [phone] Mar, 31 weeks gestation of pregna ncy Z3A.31 ; Encounter for immunization Z23 ; Previous section Z98.891 and Third trimester Z34.93 [place] [address] [place] [id number] [place] [phone] 14 Mar, 2017 Glucose tolerance test abnor mal R73.02 [place] [address] [place] [id number] [place] [phone] 07 Mar, 2017 29 weeks gestation of pregna ncy Z3A.29 ; Third trimester Z34.93 and Previous section Z98.891 [place] [address] [place] [id number] [place] [phone] Jan, [place] [address] [place] [id number] [place] [phone] 13 Jan, 2017 Flank pain R10.9 ; Diseases of the digestive system complicating , second trimester O99.612 ; Second trimester Z33.1 and 21 weeks gestation of Z3A.21 [place] [address] [place] [id number] [place] [phone] Dec, Normal in multigra stephanie Z34.80 ; 17 weeks gestation of Z3A.17 and Advanced maternal age in multigravida, second trimester O09.522 [facility] [place] [address] [facility] [id number] [address] [place] [phone] Nov, First trimester Z3 3.1 ; Normal in multigravida Z34.80 and 12 weeks gestation of Z3A.12 [facility] [place] [address] [id number] [address] [place] [phone] Nov, [facility] [place] [address] [facility] [id number] [address] [place] [phone] Oct, Encounter for test Z32.00 [facility] [address] [id number] [address] [place] [phone] Apr, Dental examination V72.2 [facility] [place] [address] [facility] [id number] [address] [place] [phone] Jan, [facility] [place] [address] [id number] [address] [place] [phone] Jan, [facility] [place] [address] [facility] [id number] [address] [place] [phone] Mar, [facility] [place] [address] [id number] [address] [place] [phone] Mar, [facility] [place] [address] [facility] [id number] [address] [place] [phone] Mar, [facility] [place] [address] [id number] [address] [place] [phone] Mar, IMMUNIZATIONS No Known Immunizations SOCIAL HISTORY Never Assessed REASON FOR VISIT OB f/u-2 wk-RIK [place] PLAN OF CARE Activity Details Follow Up 1 Week Reason: VITAL SIGNS Height 65 in 2017-05-23 Weight 239 lbs 2017-05-23 Temperature 98.4 degrees Fahrenheit 2017-05-23 Heart Rate 80 bpm 2017-05-23 Respiratory Rate 18 2017-05-23 BMI 39.772 kg/m2 2017-05-23 Blood pressure systolic 118 mmHg 2017-05-23 Blood pressure diastolic 70 mmHg 2017-05-23 MEDICATIONS Medication Instructions Dosage Frequency Start Date End Date Duration S tatus Tylenol 325 MG Orally every 6 hrs 2 tablets as needed 6h Active Ranitidine HCl 150 MG Orally Once a day 1 tablet at bedtime 24h Jan, 30 day(s) Active RESULTS Name Result Date Reference Range CULTURE, GENITAL 2017-05-23 Genital Culture, Routine Final report Result 1 PROCEDURES Procedure Date Ordered Result Body Site LAB NOT BILLED BY [facility] May 23, 2017 INSTRUCTIONS MEDICATIONS ADMINISTERED No Known Medications MEDICAL (GENERAL) HISTORY Type Description Date Surgical History section Surgical History Tubal ligation Hospitalization History Childbirth
--- OUTSIDE RECORDS SUMMARY | 2020-05-13 13:59 | XMS REPORT ---
Author Author Cleveland Madrigal Doctor Organization [facility] Address Unknown Phone Unavailable Care Team Providers Care Manager Of Financial Reporting Name Role Phone Migration, Doctor Unavailable Unavailable PROBLEMS No Known Problems ALLERGIES No Information ENCOUNTERS Encounter Location Date Diagnosis [facility] [id number] [place] [id number] Oct, Caries K02.9 [facility] [address] [id number] Sep, Caries K02.9 and Dental exam ination Z01.20 [facility] [address] [address] Jul, Vertigo R42 [facility] [address] [address] Nov, [facility] [address] [address] Oct, [facility] [address] [address] Jun, Encounter for vis it Z39.2 and Sinus congestion R09.81 [facility] [id number] [place] [address], S [id number] May, [facility] [id number] [place] [address], S [id number] May, [facility] [address] [id number] [address] [place] [address] May, Screening for deficiency ane shiv Z13.0 [facility] [address] [id number] [address] [place] [address] May, Third trimester Z3 4.93 ; Previous section Z98.891 and 38 weeks gestation of Z3A.38 [place] [address] [facility] [id number] [address] [place] [address] May, 37 weeks gestation of pregna ncy Z3A.37 ; Third trimester Z34.93 and Previous section Z98.891 [place] [address] [facility] [id number] [address] [place] [address] Apr, 36 weeks gestation of pregna ncy Z3A.36 ; Third trimester Z34.93 and Previous section Z98.891 [place] [address] [facility] [id number] [address] [place] [address] Apr, [place] [address] [place] [id number] [address] [place] [address] Apr, 34 weeks gestation of pregna ncy Z3A.34 and Third trimester Z34.93 [place] [address] [facility] [id number] [address] [place] [address] Mar, 31 weeks gestation of pregna ncy Z3A.31 ; Encounter for immunization Z23 ; Previous section Z98.891 and Third trimester Z34.93 [place] [address] [place] [id number] [address] [place] [address] 14 Mar, 2017 Glucose tolerance test abnor mal R73.02 [place] [address] [facility] [id number] [address] [place] [phone] 07 Mar, 2017 29 weeks gestation of pregna ncy Z3A.29 ; Third trimester Z34.93 and Previous section Z98.891 [place] [address] [facility] [id number] [address] [place] [address] Jan, [place] [address] [place] [id number] [address] [place] [address] Jan, Flank pain R10.9 ; Diseases of the digestive system complicating , second trimester O99.612 ; Second trimester Z33.1 and 21 weeks gestation of Z3A.21 [place] [address] [facility] [id number] [address] [place] [address] Dec, Normal in multigra stephanie Z34.80 ; 17 weeks gestation of Z3A.17 and Advanced maternal age in multigravida, second trimester O09.522 [facility] [address] [facility] [id number] [address] [place] [address] 16 Nov, 2016 First trimester Z3 3.1 ; Normal in multigravida Z34.80 and 12 weeks gestation of Z3A.12 [facility] [address] [facility] [id number] [address] [place] [address] Nov, [facility] [address] [facility] [id number] [address] [place] [address] Oct, Encounter for test Z32.00 [facility] [address] [id number] [address] [place] [address] [id number] Apr, Dental examination V72.2 [facility] [address] [facility] [id number] [address] [place] [address] Jan, [facility] [address] [facility] [id number] [address] [place] [address] Jan, [facility] [address] [facility] [id number] [address] [place] [address] Mar, [facility] [address] [facility] [id number] [address] [place] [address] Mar, [facility] [address] [facility] [id number] [address] [place] [address] Mar, [facility] [address] [facility] [id number] [address] [place] [address] Mar, IMMUNIZATIONS No Known Immunizations SOCIAL HISTORY Never Assessed REASON FOR VISIT [facility] PLAN OF CARE VITAL SIGNS MEDICATIONS Medication Instructions Dosage Frequency Start Date End Date Duration S sera Naprosyn 500 mg 1 tablet by Oral route 2 times per day 1 3 Mar, 2012 Active MethylPREDNISolone 4 mg 4 mg by Oral route 1 time per dayas directed Mar, Active RESULTS No Results PROCEDURES No Known procedures INSTRUCTIONS MEDICATIONS ADMINISTERED No Known Medications MEDICAL (GENERAL) HISTORY Type Description Date Surgical History section Surgical History Tubal ligation Hospitalization History Childbirth
--- OUTSIDE RECORDS SUMMARY | 2020-05-13 13:59 | XMS REPORT ---
Author Author Cleveland DAMON Organization [facility] Address [address] [place] [address] Care Team Providers Care Director Of Corporate Communications Name Role Phone SHUN DAMON Unavailable PROBLEMS Type Condition ICD9-CM Code MQV05-MD Code Onset Dates Condition S tatus SNOMED Code Problem Previous section Z98.891 Acti ve [id number] Problem Unspecified site of sprain and strain 848.9 Active [id number] ALLERGIES No Information ENCOUNTERS Encounter Location Date Diagnosis [place] [address] [place] [id number] [place] [phone] Nov, [place] [address] [place] [id number] [place] [address] Oct, [facility] [address] [id number] [place] [address] Jun, Encounter for vis it Z39.2 and Sinus congestion R09.81 [facility] [id number] [place] [id number] May, [facility] [id number] [place] [address], S [id number] May, [place] [address] [place] [id number] [address] [place] [address] May, Screening for deficiency ane shiv Z13.0 [place] [address] [facility] [id number] [address] [place] [address] May, Third trimester Z3 4.93 ; Previous section Z98.891 and 38 weeks gestation of Z3A.38 [place] [address] [place] [id number] [address] [place] [address] May, 37 weeks gestation of pregna ncy Z3A.37 ; Third trimester Z34.93 and Previous section Z98.891 [place] [address] [place] [id number] [address] [place] [address] Apr, 36 weeks gestation of pregna ncy Z3A.36 ; Third trimester Z34.93 and Previous section Z98.891 [place] [address] [place] [id number] [address] [place] [address] Apr, [place] [address] [place] [id number] [place] [address] Apr, 34 weeks gestation of pregna ncy Z3A.34 and Third trimester Z34.93 [place] [address] [place] [id number] [place] [address] Mar, 31 weeks gestation of pregna ncy Z3A.31 ; Encounter for immunization Z23 ; Previous section Z98.891 and Third trimester Z34.93 [place] [address] [place] [id number] [place] [address] 14 Mar, 2017 Glucose tolerance test abnor mal R73.02 [place] [address] [address] 07 Mar, 2017 29 weeks gestation of pregna ncy Z3A.29 ; Third trimester Z34.93 and Previous section Z98.891 [place] [address] [place] [id number] [place] [address] Jan, [place] [address] [place] [id number] [place] [phone] 13 Jan, 2017 Flank pain R10.9 ; Diseases of the digestive system complicating , second trimester O99.612 ; Second trimester Z33.1 and 21 weeks gestation of Z3A.21 [place] [address] [place] [id number] [address] [place] [phone] 16 Dec, 2016 Normal in multigra stephanie Z34.80 ; 17 weeks gestation of Z3A.17 and Advanced maternal age in multigravida, second trimester O09.522 [facility] [address] [id number] [address] [place] [phone] 16 Nov, 2016 First trimester Z3 3.1 ; Normal in multigravida Z34.80 and 12 weeks gestation of Z3A.12 [facility] [address] [id number] [address] [place] [address] Nov, [facility] [address] [id number] [address] [place] [phone] Oct, Encounter for test Z32.00 [facility] [address] [id number] [address] [place] [address] [id number] Apr, Dental examination V72.2 [facility] [address] [id number] [address] [place] [phone] Jan, [facility] [address] [facility] [id number] [address] [place] [phone] Jan, [facility] [address] [id number] [address] [place] [phone] Mar, [facility] [address] [facility] [id number] [address] [place] [address] Mar, [facility] [address] [id number] [address] [place] [phone] Mar, [facility] [address] [facility] [id number] [address] [place] [phone] Mar, IMMUNIZATIONS No Known Immunizations SOCIAL HISTORY Never Assessed REASON FOR VISIT OB f/u-4 wk-RIK [place] PLAN OF CARE Activity Details Follow Up 2 Weeks Reason: VITAL SIGNS Height 65 in 2017-04-05 Weight 237 lbs 2017-04-05 Temperature 97.7 degrees Fahrenheit 2017-04-05 Heart Rate 88 bpm 2017-04-05 Respiratory Rate 18 2017-04-05 BMI 39.439 kg/m2 2017-04-05 Blood pressure systolic 110 mmHg 2017-04-05 Blood pressure diastolic 70 mmHg 2017-04-05 MEDICATIONS Medication Instructions Dosage Frequency Start Date End Date Duration S tatus Benadryl Active Anna Willard [facility]-3 DHA - Active Tylenol 325 MG Orally every 6 hrs 2 tablets as needed 6h Active Ranitidine HCl 150 MG Orally Once a day 1 tablet at bedtime 24h Jan, 30 day(s) Active RESULTS Name Result Date Reference Range CBC 2017-04-05 WBC 10.3 3.4-10.8 RBC 3.84 3.77-5.28 Hemoglobin 12.1 11.1-15.9 Hematocrit 35.9 34.0-46.6 MCV 94 79-97 MCH 31.5 26.6-33.0 MCHC 33.7 31.5-35.7 RDW 13.6 12.3-15.4 Platelets 214 150-379 Neutrophils 74 Lymphs 19 Monocytes 6 Eos 1 Basos 0 Neutrophils (Absolute) 7.7 1.4-7.0 Lymphs (Absolute) 1.9 0.7-3.1 Monocytes(Absolute) 0.6 0.1-0.9 Eos (Absolute) 0.1 0.0-0.4 Baso (Absolute) 0.0 0.0-0.2 Immature Granulocytes 0 Immature Grans (Abs) 0.0 0.0-0.1 GLUCOSE MIKE 1 HOUR 2017-04-05 Gestational Diabetes Screen 145 65-1 39 UA OB DIP (IN HOUSE) 2017-04-05 Glucose negative Protein negative PROCEDURES Procedure Date Ordered Result Body Site URINE-NO MICRO April 05, 2017 [facility] April 05, 2017 VENIPUNCT, ROUTINE* April 05, 2017 INSTRUCTIONS MEDICATIONS ADMINISTERED No Known Medications MEDICAL (GENERAL) HISTORY Type Description Date Surgical History section Surgical History Tubal ligation Hospitalization History Childbirth
--- OUTSIDE RECORDS SUMMARY | 2020-05-13 13:59 | XMS REPORT ---
Author Author Cleveland DAMON Organization [facility] Address [address] [place] [address] Care Team Providers Care Wildlife Officer Name Role Phone SHUN DAMON Unavailable PROBLEMS Type Condition ICD9-CM Code HFJ53-SA Code Onset Dates Condition S tatus SNOMED Code Problem Previous section Z98.891 Acti ve [id number] Problem Unspecified site of sprain and strain 848.9 Active [id number] ALLERGIES No Information ENCOUNTERS Encounter Location Date Diagnosis [place] [id number] [place] [id number] [place] [phone] Jan, [place] [address] [place] [id number] [place] [phone] Nov, [facility] [address] [place] [id number] [address] [place] [address] Oct, [place] [address] [place] [id number] [place] [address] Jun, Encounter for vis it Z39.2 and Sinus congestion R09.[address] [place] [address], S [id number] May, [facility] [id number] [place] [address] S [id number] May, [place] [address] [place] [id number] [address] [place] [address] May, Screening for deficiency ane shiv Z13.0 [place] [address] [place] [id number] [address] [place] [phone] May, Third trimester Z3 4.93 ; Previous section Z98.891 and 38 weeks gestation of Z3A.38 [place] [address] [place] [id number] [address] [place] [address] May, 37 weeks gestation of pregna ncy Z3A.37 ; Third trimester Z34.93 and Previous section Z98.891 [place] [address] [place] [id number] [address] [place] [address] Apr, 36 weeks gestation of pregna ncy Z3A.36 ; Third trimester Z34.93 and Previous section Z98.891 [place] [address] [place] [id number] [address] [place] [address] Apr, [place] [address] [place] [id number] [address] [place] [address] Apr, 34 weeks gestation of pregna ncy Z3A.34 and Third trimester Z34.93 [place] [address] [place] [id number] [address] [place] [address] Mar, 31 weeks gestation of pregna ncy Z3A.31 ; Encounter for immunization Z23 ; Previous section Z98.891 and Third trimester Z34.93 [place] [address] [place] [id number] [address] [place] [address] 14 Mar, 2017 Glucose tolerance test abnor mal R73.02 [place] [address] [place] [id number] [address] [place] [phone] 07 Mar, 2017 29 weeks gestation of pregna ncy Z3A.29 ; Third trimester Z34.93 and Previous section Z98.891 [place] [address] [place] [id number] [address] [place] [address] Jan, [place] [address] [place] [id number] [address] [place] [phone] 13 Jan, 2017 Flank pain R10.9 ; Diseases of the digestive system complicating , second trimester O99.612 ; Second trimester Z33.1 and 21 weeks gestation of Z3A.21 [place] [address] [place] [id number] [address] [place] [address] Dec, Normal in multigra stephanie Z34.80 ; 17 weeks gestation of Z3A.17 and Advanced maternal age in multigravida, second trimester O09.522 [facility] [address] [facility] [id number] [address] [place] [phone] Nov, First trimester Z3 3.1 ; Normal in multigravida Z34.80 and 12 weeks gestation of Z3A.12 [facility] [address] [id number] [address] [place] [phone] Nov, [facility] [address] [facility] [id number] [address] [place] [phone] Oct, Encounter for test Z32.00 [facility] [address] [id number] [address] [place] [address] [id number] Apr, Dental examination V72.2 [facility] [address] [facility] [id number] [address] [place] [phone] Jan, [facility] [address] [id number] [address] [place] [phone] Jan, [facility] [address] [facility] [id number] [address] [place] [phone] Mar, [facility] [address] [id number] [address] [place] [phone] Mar, [facility] [address] [facility] [id number] [address] [place] [phone] Mar, [facility] [address] [facility] [id number] [address] [place] [phone] Mar, IMMUNIZATIONS No Known Immunizations SOCIAL HISTORY Never Assessed REASON FOR VISIT OB f/u-1 wk -- humberto hinkle PLAN OF CARE Activity Details Follow Up 1 Week Reason: VITAL SIGNS Height 65 in 2017-05-31 Weight 238.1 lbs 2017-05-31 Temperature 97.0 degrees Fahrenheit 2017-05-31 Heart Rate 78 bpm 2017-05-31 Respiratory Rate 22 2017-05-31 BMI 39.622 kg/m2 2017-05-31 Blood pressure systolic 134 mmHg 2017-05-31 Blood pressure diastolic 78 mmHg 2017-05-31 MEDICATIONS Medication Instructions Dosage Frequency Start Date End Date Duration S sera Willard [place]-3 DHA - Active RESULTS Name Result Date Reference Range UA OB DIP (IN HOUSE) 2017-05-31 Glucose negative Protein trace PROCEDURES Procedure Date Ordered Result Body Site URINE-NO MICRO May 31, 2017 INSTRUCTIONS MEDICATIONS ADMINISTERED No Known Medications MEDICAL (GENERAL) HISTORY Type Description Date Surgical History section Surgical History Tubal ligation Hospitalization History Childbirth
--- OUTSIDE RECORDS SUMMARY | 2020-05-13 13:59 | XMS REPORT ---
Author Author Cleveland MCNAIR [facility] Address [address] [place] [address] Care Team Providers Care Timber Robber Name Role Phone ARIAS MCNAIR Unavailable PROBLEMS No Known Problems ALLERGIES No Known Allergies ENCOUNTERS Encounter Location Date Diagnosis [facility] [address] [place] [address] [id number] [address] [place] [phone] Jul, Vertigo R42 [facility] [address] [phone] Nov, [facility] [address] [address] Oct, [facility] [address] [place] [address] [id number] [address] [place] [address] Jun, Encounter for vis it Z39.2 and Sinus congestion R09.81 [facility] [address] [facility] [id number] [place], [place] [id number] May, [facility] [address] [facility] [id number] [place], S [id number] May, [facility] [address] [place] [id number] [address] [place] [phone] May, Screening for deficiency ane shiv Z13.0 [facility] [address] [facility] [id number] [address] [place] [address] May, Third trimester Z3 4.93 ; Previous section Z98.891 and 38 weeks gestation of Z3A.38 [facility] [address] [facility] [id number] [address] [place] [address] May, 37 weeks gestation of pregna ncy Z3A.37 ; Third trimester Z34.93 and Previous section Z98.891 [place] [address] [place] [id number] [address] [place] [address] Apr, 36 weeks gestation of pregna ncy Z3A.36 ; Third trimester Z34.93 and Previous section Z98.891 [place] [address] [place] [id number] [address] [place] [address] Apr, [place] [address] [place] [id number] [address] [place] [address] Apr, 34 weeks gestation of pregna ncy Z3A.34 and Third trimester Z34.93 [place] [address] [place] [id number] [place] [address] 20 Mar, 2017 31 weeks gestation of pregna ncy Z3A.31 ; Encounter for immunization Z23 ; Previous section Z98.891 and Third trimester Z34.93 [place] [address] [place] [id number] [address] [place] [address] 14 Mar, 2017 Glucose tolerance test abnor mal R73.02 [place] [address] [place] [id number] [address] [place] [phone] 07 Mar, 2017 29 weeks gestation of pregna ncy Z3A.29 ; Third trimester Z34.93 and Previous section Z98.891 [place] [address] [place] [id number] [address] [place] [address] Jan, [place] [address] [place] [id number] [address] [place] [phone] 13 Jan, 2017 Flank pain R10.9 ; Diseases of the digestive system complicating , second trimester O99.612 ; Second trimester Z33.1 and 21 weeks gestation of Z3A.21 [place] [address] [place] [id number] [address] [place] [address] 16 Dec, 2016 Normal in multigra stephanie Z34.80 ; 17 weeks gestation of Z3A.17 and Advanced maternal age in multigravida, second trimester O09.522 [facility] [address] [facility] [id number] [address] [place] [address] 16 Nov, 2016 First trimester Z3 3.1 ; Normal in multigravida Z34.80 and 12 weeks gestation of Z3A.12 [facility] [address] [facility] [id number] [address] [place] [phone] Nov, [facility] [address] [facility] [id number] [address] [place] [address] Oct, Encounter for test Z32.00 [facility] [address] [id number] [address] [place] [id number] Apr, Dental examination V72.2 [facility] [address] [facility] [id number] [address] [place] [phone] Jan, [facility] [address] [facility] [id number] [address] [place] [phone] Jan, [facility] [address] [facility] [id number] [address] [place] [phone] Mar, [facility] [address] [facility] [id number] [address] [place] [phone] Mar, [facility] [address] [facility] [id number] [address] [place] [phone] Mar, [facility] [address] [facility] [id number] [address] [place] [address] Mar, IMMUNIZATIONS No Known Immunizations SOCIAL HISTORY Never Assessed REASON FOR VISIT Dizziness, pt states that she has been dizzy for over a week but today got reall y bad, felt like she was going to pass out. Pt states she had a tooth ache two w eeks ago. Eliud GRIMALDO PLAN OF CARE Activity Details Follow Up Follow up as needed with PCP or if symptoms worsening. Reason: VITAL SIGNS Height 65 in 2018-08-20 Weight 240.2 lbs 2018-08-20 Temperature 97.8 degrees Fahrenheit 2018-08-20 Heart Rate 88 bpm 2018-08-20 Respiratory Rate 18 2018-08-20 BMI 39.97 kg/m2 2018-08-20 Blood pressure systolic 124 mmHg 2018-08-20 Blood pressure diastolic 100 mmHg 2018-08-20 MEDICATIONS Unknown Medications RESULTS No Results PROCEDURES No Known procedures INSTRUCTIONS MEDICATIONS ADMINISTERED No Known Medications MEDICAL (GENERAL) HISTORY Type Description Date Surgical History section Surgical History Tubal ligation Hospitalization History Childbirth
--- OUTSIDE RECORDS SUMMARY | 2020-05-13 13:59 | XMS REPORT ---
Author Author Cleveland Madrigal Doctor Organization [facility] Address Unknown Phone Unavailable Care Team Providers Care Workers Compensation Manager Name Role Phone Migration, Doctor Unavailable Unavailable PROBLEMS No Known Problems ALLERGIES No Information ENCOUNTERS Encounter Location Date Diagnosis [facility] [id number] [place] [address] [id number] Oct, Caries K02.9 [facility] [address] [id number] Sep, Caries K02.9 and Dental exam ination Z01.20 [facility] [address] [address] Jul, Vertigo R42 [facility] [place] [address] [phone] Nov, [facility] [place] [address] [address] Oct, [facility] [place] [address] [address] Jun, Encounter for vis it Z39.2 and Sinus congestion R09.81 [facility] [id number] [place] [address], S [id number] May, [facility] [id number] [place] [address], S [id number] May, [facility], [place] [address] [place] [address] [id number] [address] [place] [address] May, Screening for deficiency ane shiv Z13.0 [facility], [place] [address] [place] [address] [id number] [address] [place] [address] May, Third trimester Z3 4.93 ; Previous section Z98.891 and 38 weeks gestation of Z3A.38 [place] [address] [address] [facility] [id number] [address] [address] May, 37 weeks gestation of pregna ncy Z3A.37 ; Third trimester Z34.93 and Previous section Z98.891 [place] [address] [address] [facility] [id number] [address] [address] Apr, 36 weeks gestation of pregna ncy Z3A.36 ; Third trimester Z34.93 and Previous section Z98.891 [place] [address] [address] [facility] [id number] [address] [address] Apr, [place] [address] [place] [id number] [address] [place] [address] Apr, 34 weeks gestation of pregna ncy Z3A.34 and Third trimester Z34.93 [place] [address] [address] [facility] [id number] [address] [phone] Mar, 31 weeks gestation of pregna ncy Z3A.31 ; Encounter for immunization Z23 ; Previous section Z98.891 and Third trimester Z34.93 [place] [address] [place] [id number] [address] [place] [address] 14 Mar, 2017 Glucose tolerance test abnor mal R73.02 [place] [address] [facility] [id number] [address] [place] [phone] 07 Mar, 2017 29 weeks gestation of pregna ncy Z3A.29 ; Third trimester Z34.93 and Previous section Z98.891 [place] [address] [address] [facility] [id number] [address] [phone] Jan, [place] [address] [place] [id number] [address] [place] [address] Jan, Flank pain R10.9 ; Diseases of the digestive system complicating , second trimester O99.612 ; Second trimester Z33.1 and 21 weeks gestation of Z3A.21 [place] [address] [facility] [id number] [address] [phone] Dec, Normal in multigra stephanie Z34.80 ; 17 weeks gestation of Z3A.17 and Advanced maternal age in multigravida, second trimester O09.522 [facility], [place] [address] [id number] [address] [place] [phone] 16 Nov, 2016 First trimester Z3 3.1 ; Normal in multigravida Z34.80 and 12 weeks gestation of Z3A.12 [facility], [place] [address] [id number] [address] [place] [phone] Nov, [facility], [place] [address] [id number] [address] [phone] Oct, Encounter for test Z32.00 [facility] [address] [id number] [address] [place] [address] [id number] Apr, Dental examination V72.2 [facility], [place] [address] [facility] [id number] [address] [phone] Jan, [facility], [place] [address] [id number] [address] [place] [phone] Jan, [facility], [place] [address] [facility] [id number] [address] [place] [phone] Mar, [facility], [place] [address] [facility] [id number] [address] [place] [phone] 14 Mar, 2012 [facility], [place] [address] [facility] [id number] [address] [place] [phone] Mar, [facility], [place] [address] [facility] [id number] [address] [place] [phone] Mar, IMMUNIZATIONS No Known Immunizations SOCIAL HISTORY Never Assessed REASON FOR VISIT [facility] PLAN OF CARE VITAL SIGNS MEDICATIONS Unknown Medications RESULTS No Results PROCEDURES No Known procedures INSTRUCTIONS MEDICATIONS ADMINISTERED No Known Medications MEDICAL (GENERAL) HISTORY Type Description Date Surgical History section Surgical History Tubal ligation Hospitalization History Childbirth
--- OUTSIDE RECORDS SUMMARY | 2020-05-13 13:59 | XMS REPORT ---
Author Author Cleveland DAMON Organization [facility] Address [address] [place] [address] Care Team Providers Care Drop Count Associate Name Role Phone SHUN DAMON Unavailable PROBLEMS Type Condition ICD9-CM Code [id number]-RY Code Onset Dates Condition S tatus SNOMED Code Problem Previous section Z98.891 Acti ve [id number] Problem Unspecified site of sprain and strain 848.9 Active [id number] ALLERGIES No Known Allergies ENCOUNTERS Encounter Location Date Diagnosis [place] [address] [place] [id number] [address] [place] [phone] Nov, [facility] [address] [id number] [address] [place] [address] Oct, [facility] [address] [id number] [address] [place] [phone] Jun, Encounter for vis it Z39.2 and Sinus congestion R09.81 [facility] [address] [facility] [id number] [place], [place] [id number] May, [facility] [address] [id number] [place] [id number] May, [facility] [address] [place] [address] [id number] [address] [place] [phone] May, Screening for deficiency ane shiv Z13.0 [place] [address] [facility] [id number] [address] [place] [address] May, Third trimester Z3 4.93 ; Previous section Z98.891 and 38 weeks gestation of Z3A.38 [facility] [address] [place] [address] [id number] [address] [place] [phone] May, 37 weeks gestation of pregna ncy Z3A.37 ; Third trimester Z34.93 and Previous section Z98.891 [place] [address] [place] [id number] [address] [place] [address] Apr, 36 weeks gestation of pregna ncy Z3A.36 ; Third trimester Z34.93 and Previous section Z98.891 [place] [address] [place] [address] Apr, [place] [address] [place] [id number] [place] [address] Apr, 34 weeks gestation of pregna ncy Z3A.34 and Third trimester Z34.93 [place] [address] [address] 20 Mar, 2017 31 weeks gestation of pregna ncy Z3A.31 ; Encounter for immunization Z23 ; Previous section Z98.891 and Third trimester Z34.93 [place] [address] [address] 14 Mar, 2017 Glucose tolerance test abnor mal R73.02 [place] [address] [address] 07 Mar, 2017 29 weeks gestation of pregna ncy Z3A.29 ; Third trimester Z34.93 and Previous section Z98.891 [place] [address] [place] [address] [id number] [address] [place] [phone] Jan, [place] [address] [address] 13 Jan, 2017 Flank pain R10.9 ; Diseases of the digestive system complicating , second trimester O99.612 ; Second trimester Z33.1 and 21 weeks gestation of Z3A.21 [place] [address] [address] [place] [id number] [address] [place] [phone] 16 Dec, 2016 Normal in multigra stephanie Z34.80 ; 17 weeks gestation of Z3A.17 and Advanced maternal age in multigravida, second trimester O09.522 [facility] [address] [facility] [id number] [address] [place] [phone] 16 Nov, 2016 First trimester Z3 3.1 ; Normal in multigravida Z34.80 and 12 weeks gestation of Z3A.12 [facility] [address] [facility] [id number] [address] [place] [phone] Nov, [facility] [address] [facility] [id number] [address] [place] [phone] Oct, Encounter for test Z32.00 [facility] [address] [id number] [address] [place] [address] [id number] Apr, Dental examination V72.2 [facility] [address] [facility] [id number] [address] [place] [phone] 14 Jan, 2015 [facility] [address] [facility] [id number] [address] [place] [phone] Jan, [facility] [address] [id number] [address] [place] [phone] Mar, [facility] [address] [facility] [id number] [address] [place] [phone] Mar, [facility] [address] [facility] [id number] [address] [place] [phone] Mar, [facility] [address] [facility] [id number] [address] [place] [phone] Mar, IMMUNIZATIONS No Known Immunizations SOCIAL HISTORY Never Assessed REASON FOR VISIT OB---tcuppettRN, -C/o sinus congestion/cough PLAN OF CARE Activity Details Follow Up 1 Year with Wendy for annual well woman Reason: VITAL SIGNS Height 65 in 2017-07-24 Weight 226.0 lbs 2017-07-24 Temperature 98.4 degrees Fahrenheit 2017-07-24 Heart Rate 88 bpm 2017-07-24 Respiratory Rate 18 2017-07-24 BMI 37.60 kg/m2 2017-07-24 Blood pressure systolic 112 mmHg 2017-07-24 Blood pressure diastolic 74 mmHg 2017-07-24 MEDICATIONS Medication Instructions Dosage Frequency Start Date End Date Duration S tatus Azithromycin 250 MG Orally Once a day 2 tablets on the fi rst day, then 1 tablet daily for 4 days 24h Jun, Jun, 5 day(s) Active RESULTS No Results PROCEDURES No Known procedures INSTRUCTIONS MEDICATIONS ADMINISTERED No Known Medications MEDICAL (GENERAL) HISTORY Type Description Date Surgical History section Surgical History Tubal ligation Hospitalization History Childbirth
--- OUTSIDE RECORDS SUMMARY | 2020-05-13 13:59 | XMS REPORT ---
Author Author Cleveland DAMON Organization [facility] Address [address] [place] [address] Care Team Providers Care Legislative Director Name Role Phone SHUN DAMON Unavailable PROBLEMS Type Condition ICD9-CM Code [id number] Code Onset Dates Condition S tatus SNOMED Code Problem Previous section Z98.891 Acti ve 545602423 Problem Unspecified site of sprain and strain 848.9 Active [id number] ALLERGIES No Information ENCOUNTERS Encounter Location Date Diagnosis [place] [id number] [place] [id number] [address] [place] [address] Jan, [place] [address] [place] [id number] [address] [place] [address] Nov, [facility] [address] [id number] [address] [place] [address] Oct, [place] [address] [place] [address] [id number] [address] [place] [address] Jun, Encounter for vis it Z39.2 and Sinus congestion R09.81 [id number] [place] [address], S [id number] May, [facility] [id number] [place] [address] S [id number] May, [place] [address] [place] [id number] [address] [place] [address] May, Screening for deficiency ane shiv Z13.0 [place] [address] [place] [id number] [address] [place] [address] May, Third trimester Z3 4.93 ; Previous section Z98.891 and 38 weeks gestation of Z3A.38 [place] [address] [place] [id number] [address] [place] [address] May, 37 weeks gestation of pregna ncy Z3A.37 ; Third trimester Z34.93 and Previous section Z98.891 [place] [address] [place] [id number] [address] [place] [address] Apr, 36 weeks gestation of pregna ncy Z3A.36 ; Third trimester Z34.93 and Previous section Z98.891 [place] [address] [place] [id number] [address] [place] [address] Apr, [place] [address] [place] [id number] [address] [place] [address] Apr, 34 weeks gestation of pregna ncy Z3A.34 and Third trimester Z34.93 [place] [address] [place] [id number] [address] [place] [address] Mar, 31 weeks gestation of pregna ncy Z3A.31 ; Encounter for immunization Z23 ; Previous section Z98.891 and Third trimester Z34.93 [place] [address] [place] [id number] [address] [place] [phone] 14 Mar, 2017 Glucose tolerance test abnor mal R73.02 [place] [address] [place] [id number] [address] [place] [address] 07 Mar, 2017 29 weeks gestation of pregna ncy Z3A.29 ; Third trimester Z34.93 and Previous section Z98.891 [place] [address] [place] [id number] [address] [place] [phone] Jan, [place] [address] [place] [id number] [address] [place] [address] 13 Jan, 2017 Flank pain R10.9 ; Diseases of the digestive system complicating , second trimester O99.612 ; Second trimester Z33.1 and 21 weeks gestation of Z3A.21 [place] [address] [place] [id number] [address] [place] [address] Dec, Normal in multigra stephanie Z34.80 ; 17 weeks gestation of Z3A.17 and Advanced maternal age in multigravida, second trimester O09.522 [facility] [address] [id number] [address] [place] [phone] Nov, First trimester Z3 3.1 ; Normal in multigravida Z34.80 and 12 weeks gestation of Z3A.12 [facility] [address] [id number] [address] [place] [phone] Nov, [facility] [address] [id number] [address] [place] [phone] Oct, Encounter for test Z32.00 [facility] [address] [id number] [address] [place] [address] [id number] Apr, Dental examination V72.2 [facility] [address] [facility] [id number] [address] [place] [phone] Jan, [facility] [address] [id number] [address] [place] [phone] Jan, [facility] [address] [facility] [id number] [address] [place] [phone] Mar, [facility] [address] [id number] [address] [place] [phone] Mar, [facility] [address] [facility] [id number] [address] [place] [phone] Mar, [facility] [address] [id number] [address] [place] [phone] Mar, IMMUNIZATIONS No Known Immunizations SOCIAL HISTORY Never Assessed REASON FOR VISIT PHONE CALL PLAN OF CARE VITAL SIGNS MEDICATIONS Unknown Medications RESULTS No Results PROCEDURES No Known procedures INSTRUCTIONS MEDICATIONS ADMINISTERED No Known Medications MEDICAL (GENERAL) HISTORY Type Description Date Surgical History section Surgical History Tubal ligation Hospitalization History Childbirth
--- OUTSIDE RECORDS SUMMARY | 2020-05-13 13:59 | XMS REPORT ---
Author Author Cleveland DAMON Organization [facility] Address [address] [place] [address] Care Team Providers Care Staff Radiologist Name Role Phone SHUN DAMON Unavailable PROBLEMS Type Condition ICD9-CM Code SOT93-RW Code Onset Dates Condition S tatus SNOMED Code Problem Previous section Z98.891 Acti ve 594440844 Problem Unspecified site of sprain and strain 848.9 Active [id number] ALLERGIES No Information ENCOUNTERS Encounter Location Date Diagnosis [place] [address] [place] [id number] [address] [place] [phone] Nov, [place] [address] [place] [id number] [address] [place] [address] Oct, [facility] [address] [place] [address] [id number] [address] [place] [address] Jun, Encounter for vis it Z39.2 and Sinus congestion R09.81 [facility] [address] [place] [address] [id number] [place], S [id number] May, [facility] [address] [id number] [place] [address], S [id number] May, [place] [address] [address] [place] [id number] [address] [place] [address] May, Screening for deficiency ane shiv Z13.0 [place] [address] [address] [facility] [id number] [address] [place] [address] May, Third trimester Z3 4.93 ; Previous section Z98.891 and 38 weeks gestation of Z3A.38 [place] [address] [place] [id number] [address] [place] [address] May, 37 weeks gestation of pregna ncy Z3A.37 ; Third trimester Z34.93 and Previous section Z98.891 [place] [address] [address] [place] [id number] [address] [place] [address] Apr, 36 weeks gestation of pregna ncy Z3A.36 ; Third trimester Z34.93 and Previous section Z98.891 [place] [address] [address] [place] [id number] [address] [place] [address] Apr, [place] [address] [place] [id number] [place] [phone] Apr, 34 weeks gestation of pregna ncy Z3A.34 and Third trimester Z34.93 [place] [address] [address] [place] [id number] [place] [address] Mar, 31 weeks gestation of pregna ncy Z3A.31 ; Encounter for immunization Z23 ; Previous section Z98.891 and Third trimester Z34.93 [place] [address] [place] [id number] [address] [place] [address] 14 Mar, 2017 Glucose tolerance test abnor mal R73.02 [place] [address] [address] 07 Mar, 2017 29 weeks gestation of pregna ncy Z3A.29 ; Third trimester Z34.93 and Previous section Z98.891 [place] [address] [address] [place] [id number] [address] [place] [address] Jan, [place] [address] [place] [id number] [place] [phone] 13 Jan, 2017 Flank pain R10.9 ; Diseases of the digestive system complicating , second trimester O99.612 ; Second trimester Z33.1 and 21 weeks gestation of Z3A.21 [place] [address] [address] [place] [id number] [address] [place] [address] 16 Dec, 2016 Normal in multigra stephanie Z34.80 ; 17 weeks gestation of Z3A.17 and Advanced maternal age in multigravida, second trimester O09.522 [facility] [address] [id number] [address] [place] [address] 16 Nov, 2016 First trimester Z3 3.1 ; Normal in multigravida Z34.80 and 12 weeks gestation of Z3A.12 [facility] [address] [id number] [address] [place] [address] 02 Nov, 2016 [facility] [address] [id number] [address] [place] [phone] Oct, Encounter for test Z32.00 [facility] [address] [id number] [address] [place] [address] [id number] Apr, Dental examination V72.2 [facility] [address] [id number] [address] [place] [phone] 14 Jan, 2015 [facility] [address] [id number] [address] [place] [phone] Jan, [facility] [address] [id number] [address] [place] [phone] Mar, [facility] [address] [id number] [address] [place] [phone] Mar, [facility] [address] [id number] [address] [place] [phone] Mar, [facility] [address] [id number] [address] [place] [phone] Mar, IMMUNIZATIONS No Known Immunizations SOCIAL HISTORY Never Assessed REASON FOR VISIT Requests return call PLAN OF CARE VITAL SIGNS MEDICATIONS Unknown Medications RESULTS No Results PROCEDURES No Known procedures INSTRUCTIONS MEDICATIONS ADMINISTERED No Known Medications MEDICAL (GENERAL) HISTORY Type Description Date Surgical History section Surgical History Tubal ligation Hospitalization History Childbirth
--- OUTSIDE RECORDS SUMMARY | 2020-05-13 13:59 | XMS REPORT ---
Author Author Cleveland MURO [facility] Address [address] [place] [address] Care Team Providers Care Automotive Maintenance Technician Name Role Phone GONZALEZ MURO Unavailable PROBLEMS Type Condition ICD9-CM Code OOW48-FI Code Onset Dates Condition S tatus SNOMED Code Problem Previous section Z98.891 Acti ve [id number] Problem Unspecified site of sprain and strain 848.9 Active [id number] ALLERGIES Unknown Allergies SOCIAL HISTORY No smoking Hx information available PLAN OF CARE VITAL SIGNS MEDICATIONS Unknown Medications RESULTS Name Result Date Reference Range TEST, URINE (IN HOUSE) 2016-11-29 RESULTS POSITIVE Lot # [id number] Control + Exp date PROCEDURES Procedure Date Ordered Related Diagnosis Body Site URINE TEST Nov 29, 2016 IMMUNIZATIONS No Known Immunizations
--- OUTSIDE RECORDS SUMMARY | 2020-05-13 13:59 | XMS REPORT ---
Author Author Cleveland DAMON Organization [facility] Address [address] [place] [address] Care Team Providers Care Stitchdown Toe Former Name Role Phone SHUN DAMON Unavailable PROBLEMS Type Condition ICD9-CM Code KOP76-IQ Code Onset Dates Condition S tatus SNOMED Code Problem Previous section Z98.891 Acti ve 168882897 Problem Unspecified site of sprain and strain 848.9 Active [id number] ALLERGIES No Known Allergies ENCOUNTERS Encounter Location Date Diagnosis [place] [address] [place] [id number] [place] [phone] Nov, [facility] [id number] [place] [phone] Oct, [facility] [id number] [place] [phone] Jun, Encounter for vis it Z39.2 and Sinus congestion R09.81 [facility] [address] [facility] [id number] [place] [id number] May, [facility] [address] [id number] [place] [id number] May, [facility] [address] [place] [id number] [address] [place] [phone] May, Screening for deficiency ane shiv Z13.0 [place] [address] [facility] [id number] [address] [place] [phone] May, Third trimester Z3 4.93 ; Previous section Z98.891 and 38 weeks gestation of Z3A.38 [facility] [address] [place] [place] [id number] [place] [phone] May, 37 weeks gestation of pregna ncy Z3A.37 ; Third trimester Z34.93 and Previous section Z98.891 [place] [address] [place] [id number] [place] [phone] Apr, 36 weeks gestation of pregna ncy Z3A.36 ; Third trimester Z34.93 and Previous section Z98.891 [place] [id number] [place] [phone] Apr, [place] [address] [place] [id number] [place] [phone] Apr, 34 weeks gestation of pregna ncy Z3A.34 and Third trimester Z34.93 [place] [address] [phone] 20 Mar, 2017 31 weeks gestation of pregna ncy Z3A.31 ; Encounter for immunization Z23 ; Previous section Z98.891 and Third trimester Z34.93 [place] [address] [phone] 14 Mar, 2017 Glucose tolerance test abnor mal R73.02 [place] [address] [phone] 07 Mar, 2017 29 weeks gestation of pregna ncy Z3A.29 ; Third trimester Z34.93 and Previous section Z98.891 [place] [address] [place] [id number] [place] [phone] Jan, [place] [address] [phone] 13 Jan, 2017 Flank pain R10.9 ; Diseases of the digestive system complicating , second trimester O99.612 ; Second trimester Z33.1 and 21 weeks gestation of Z3A.21 [place] [address] [place] [id number] [place] [phone] 16 Dec, 2016 Normal in multigra stephanie Z34.80 ; 17 weeks gestation of Z3A.17 and Advanced maternal age in multigravida, second trimester O09.522 [facility] [address] [facility] [id number] [address] [place] [phone] 16 Nov, 2016 First trimester Z3 3.1 ; Normal in multigravida Z34.80 and 12 weeks gestation of Z3A.12 [facility] [address] [facility] [id number] [address] [place] [phone] Nov, [facility] [address] [facility] [id number] [address] [place] [phone] Oct, Encounter for test Z32.00 [facility] [address] [id number] [address] [place] [id number] Apr, Dental examination V72.2 [facility] [address] [facility] [id number] [address] [place] [phone] 14 Jan, 2015 [place] [address] [facility] [id number] [address] [place] [phone] Jan, [facility] [address] [id number] [address] [place] [phone] Mar, [facility] [address] [facility] [id number] [address] [place] [phone] Mar, [facility] [address] [facility] [id number] [address] [place] [phone] Mar, [place] [address] [facility] [id number] [address] [place] [phone] Mar, IMMUNIZATIONS Vaccine Route Administration Date Status TDAP (BOOSTRIX) IM Intramuscular April 18, 2017 Administered SOCIAL HISTORY Never Assessed REASON FOR VISIT OB f/u-2 wk, PT did not go out to the hospital for a second elva Nunes MA PLAN OF CARE Activity Details Follow Up 2 Weeks Reason: VITAL SIGNS Height 65 in 2017-04-18 Weight 235.6 lbs 2017-04-18 Temperature 97.8 degrees Fahrenheit 2017-04-18 Heart Rate 84 bpm 2017-04-18 Respiratory Rate 2017-04-18 BMI 39.206 kg/m2 2017-04-18 Blood pressure systolic 122 mmHg 2017-04-18 Blood pressure diastolic 70 mmHg 2017-04-18 MEDICATIONS Medication Instructions Dosage Frequency Start Date End Date Duration S sera Willard Hartwell-3 DHA - Active Benadryl Active RESULTS Name Result Date Reference Range UA OB DIP (IN HOUSE) 2017-04-18 Glucose negative Protein Trace PROCEDURES Procedure Date Ordered Result Body Site URINE-NO MICRO April 18, 2017 TDAP (BOOSTRIX) April 18, 2017 SINGLE IMMUNIZATION ADMIN April 18, 2017 INSTRUCTIONS MEDICATIONS ADMINISTERED No Known Medications MEDICAL (GENERAL) HISTORY Type Description Date Surgical History section Surgical History Tubal ligation Hospitalization History Childbirth
--- OUTSIDE RECORDS SUMMARY | 2020-05-13 13:59 | XMS REPORT ---
Author Author Cleveland DAMON Organization [facility] Address [address] [place] [address] Care Team Providers Care Spinner Cap Frame Name Role Phone SHUN DAMON Unavailable PROBLEMS Type Condition ICD9-CM Code NPU36-EL Code Onset Dates Condition S tatus SNOMED Code Problem Previous section Z98.891 Acti ve [id number] Problem Unspecified site of sprain and strain 848.9 Active [id number] ALLERGIES No Known Allergies SOCIAL HISTORY Never Assessed PLAN OF CARE Activity Details Follow Up 4 Weeks Wendy Reason: VITAL SIGNS Height 65 in 2016-12-15 Weight 230.0 lbs 2016-12-15 Temperature 97.0 degrees Fahrenheit 2016-12-15 Heart Rate 88 bpm 2016-12-15 Respiratory Rate 16 2016-12-15 BMI 38.274 kg/m2 2016-12-15 Blood pressure systolic 102 mmHg 2016-12-15 Blood pressure diastolic 68 mmHg 2016-12-15 MEDICATIONS Medication Instructions Dosage Frequency Start Date End Date Duration S tatus Tylenol 325 MG Orally every 6 hrs 2 tablets as needed 6h Active Benadryl Active RESULTS Name Result Date Reference Range TSH () 2016-12-15 TSH 1.090 0.450-4.500 A1C 2016-12-15 Hemoglobin A1c 5.3 4.8-5.6 CBC 2016-12-15 WBC 7.9 3.4-10.8 RBC 4.33 3.77-5.28 Hemoglobin 13.6 11.1-15.9 Hematocrit 40.5 34.0-46.6 MCV 94 79-97 MCH 31.4 26.6-33.0 MCHC 33.6 31.5-35.7 RDW 13.4 12.3-15.4 Platelets 256 150-379 Neutrophils 70 Lymphs 21 Monocytes 7 Eos 2 Basos 0 Neutrophils (Absolute) 5.5 1.4-7.0 Lymphs (Absolute) 1.7 0.7-3.1 Monocytes(Absolute) 0.6 0.1-0.9 Eos (Absolute) 0.1 0.0-0.4 Baso (Absolute) 0.0 0.0-0.2 Immature Granulocytes 0 Immature Grans (Abs) 0.0 0.0-0.1 ANTIBODY SCREEN 2016-12-15 Antibody Screen Negative Negative BLOOD TYPE/RH FACTOR 2016-12-15 ABO Grouping O Rh Factor Positive RUBELLA ANTIBODIES, IgG 2016-12-15 Rubella Antibodies, IgG 2.45 Immune > 0.99 CULTURE, GENITAL 2016-12-15 Genital Culture, Routine Final report Result 1 CULTURE, URINE 2016-12-15 Urine Culture, Routine Final report Result 1 No growth PAP TEST W/ HPV REGARDLESS 2016-12-15 DIAGNOSIS: Specimen adequacy: Clinician provided ICD10: Performed by: . . Note: HPV, high-risk Negative Negative TRICHOMONAS (IN HOUSE) 2016-12-15 TRICHOMONAS negative Control + Lot # [id number] Exp date 11/2017 URINE DRUG SCREEN (IN HOUSE) 2016-12-15 Lot # [id number] Exp date 04/2018 Control + COCAINE neg AMPH neg MTD neg THC neg OPIATE neg BENZO neg PCP neg BAR neg OXY neg MAMP neg TCA neg BUP neg MDMA neg UA LONG DIP (IN HOUSE) 2016-12-15 Lot # [id number] Exp date 10/2017 Clarity clear Color yellow Odor no GLU neg ERIK neg KET trace SG 1.025 BLO trace pH 6.0 Protein neg URO 1.0 NIT neg MIREYA trace Lot # Exp date PDF Report 2016-12-15 PDF Report1 LCLS BACTERIAL VAGINOSIS (IN HOUSE) 2016-12-15 RESULTS negative Control + Lot # [id number] Exp date 06/2017 TSH () 2016-12-15 TSH 1.090 0.450-4.500 A1C 2016-12-15 Hemoglobin A1c 5.3 4.8-5.6 CBC 2016-12-15 WBC 7.9 3.4-10.8 RBC 4.33 3.77-5.28 Hemoglobin 13.6 11.1-15.9 Hematocrit 40.5 34.0-46.6 MCV 94 79-97 MCH 31.4 26.6-33.0 MCHC 33.6 31.5-35.7 RDW 13.4 12.3-15.4 Platelets 256 150-379 Neutrophils 70 Lymphs 21 Monocytes 7 Eos 2 Basos 0 Neutrophils (Absolute) 5.5 1.4-7.0 Lymphs (Absolute) 1.7 0.7-3.1 Monocytes(Absolute) 0.6 0.1-0.9 Eos (Absolute) 0.1 0.0-0.4 Baso (Absolute) 0.0 0.0-0.2 Immature Granulocytes 0 Immature Grans (Abs) 0.0 0.0-0.1 ANTIBODY SCREEN 2016-12-15 Antibody Screen Negative Negative BLOOD TYPE/RH FACTOR 2016-12-15 ABO Grouping O Rh Factor Positive RUBELLA ANTIBODIES, IgG 2016-12-15 Rubella Antibodies, IgG 2.45 Immune > 0.99 CULTURE, GENITAL 2016-12-15 Genital Culture, Routine Final report Result 1 CULTURE, URINE 2016-12-15 Urine Culture, Routine Final report Result 1 No growth PAP TEST W/ HPV REGARDLESS 2016-12-15 DIAGNOSIS: Specimen adequacy: Clinician provided ICD10: Performed by: . . Note: HPV, high-risk Negative Negative GC/CHLAM PROBE (STATE) 2016-12-15 CHLAMYDIA GC TRICHOMONAS (IN HOUSE) 2016-12-15 TRICHOMONAS negative Control + Lot # [id number] Exp date 11/2017 URINE DRUG SCREEN (IN HOUSE) 2016-12-15 Lot # [id number] Exp date 04/2018 Control + COCAINE neg AMPH neg MTD neg THC neg OPIATE neg BENZO neg PCP neg BAR neg OXY neg MAMP neg TCA neg BUP neg MDMA neg UA LONG DIP (IN HOUSE) 2016-12-15 Lot # [id number] Exp date 10/2017 Clarity clear Color yellow Odor no GLU neg ERIK neg KET trace SG 1.025 BLO trace pH 6.0 Protein neg URO 1.0 NIT neg MIREYA trace Lot # Exp date PDF Report 2016-12-15 PDF Report1 LCLS BACTERIAL VAGINOSIS (IN HOUSE) 2016-12-15 RESULTS negative Control + Lot # [id number] Exp date 06/2017 TSH () 2016-12-15 TSH 1.090 0.450-4.500 A1C 2016-12-15 Hemoglobin A1c 5.3 4.8-5.6 CBC 2016-12-15 WBC 7.9 3.4-10.8 RBC 4.33 3.77-5.28 Hemoglobin 13.6 11.1-15.9 Hematocrit 40.5 34.0-46.6 MCV 94 79-97 MCH 31.4 26.6-33.0 MCHC 33.6 31.5-35.7 RDW 13.4 12.3-15.4 Platelets 256 150-379 Neutrophils 70 Lymphs 21 Monocytes 7 Eos 2 Basos 0 Neutrophils (Absolute) 5.5 1.4-7.0 Lymphs (Absolute) 1.7 0.7-3.1 Monocytes(Absolute) 0.6 0.1-0.9 Eos (Absolute) 0.1 0.0-0.4 Baso (Absolute) 0.0 0.0-0.2 Immature Granulocytes 0 Immature Grans (Abs) 0.0 0.0-0.1 ANTIBODY SCREEN 2016-12-15 Antibody Screen Negative Negative BLOOD TYPE/RH FACTOR 2016-12-15 ABO Grouping O Rh Factor Positive RUBELLA ANTIBODIES, IgG 2016-12-15 Rubella Antibodies, IgG 2.45 Immune > 0.99 CULTURE, GENITAL 2016-12-15 Genital Culture, Routine Final report Result 1 CULTURE, URINE 2016-12-15 Urine Culture, Routine Final report Result 1 No growth PAP TEST W/ HPV REGARDLESS 2016-12-15 DIAGNOSIS: Specimen adequacy: Clinician provided ICD10: Performed by: . . Note: HPV, high-risk Negative Negative GC/CHLAM PROBE (STATE) 2016-12-15 CHLAMYDIA GC SYPHILIS (STATE) 2016-12-15 TRICHOMONAS (IN HOUSE) 2016-12-15 TRICHOMONAS negative Control + Lot # [id number] Exp date 11/2017 URINE DRUG SCREEN (IN HOUSE) 2016-12-15 Lot # [id number] Exp date 04/2018 Control + COCAINE neg AMPH neg MTD neg THC neg OPIATE neg BENZO neg PCP neg BAR neg OXY neg MAMP neg TCA neg BUP neg MDMA neg UA LONG DIP (IN HOUSE) 2016-12-15 Lot # [id number] Exp date 10/2017 Clarity clear Color yellow Odor no GLU neg ERIK neg KET trace SG 1.025 BLO trace pH 6.0 Protein neg URO 1.0 NIT neg MIREYA trace Lot # Exp date HIV (STATE) 2016-12-15 HEP B SURFACE ANTIGEN (STATE) 2016-12-15 HEP B ANTIBODY HEP B ANTIBODY (RML) HEP B ANTIBODY (STATE) PDF Report 2016-12-15 PDF Report1 LCLS BACTERIAL VAGINOSIS (IN HOUSE) 2016-12-15 RESULTS negative Control + Lot # [id number] Exp date 06/2017 TSH () 2016-12-15 TSH 1.090 0.450-4.500 A1C 2016-12-15 Hemoglobin A1c 5.3 4.8-5.6 CBC 2016-12-15 WBC 7.9 3.4-10.8 RBC 4.33 3.77-5.28 Hemoglobin 13.6 11.1-15.9 Hematocrit 40.5 34.0-46.6 MCV 94 79-97 MCH 31.4 26.6-33.0 MCHC 33.6 31.5-35.7 RDW 13.4 12.3-15.4 Platelets 256 150-379 Neutrophils 70 Lymphs 21 Monocytes 7 Eos 2 Basos 0 Neutrophils (Absolute) 5.5 1.4-7.0 Lymphs (Absolute) 1.7 0.7-3.1 Monocytes(Absolute) 0.6 0.1-0.9 Eos (Absolute) 0.1 0.0-0.4 Baso (Absolute) 0.0 0.0-0.2 Immature Granulocytes 0 Immature Grans (Abs) 0.0 0.0-0.1 ANTIBODY SCREEN 2016-12-15 Antibody Screen Negative Negative BLOOD TYPE/RH FACTOR 2016-12-15 ABO Grouping O Rh Factor Positive RUBELLA ANTIBODIES, IgG 2016-12-15 Rubella Antibodies, IgG 2.45 Immune > 0.99 CULTURE, GENITAL 2016-12-15 Genital Culture, Routine Final report Result 1 CULTURE, URINE 2016-12-15 Urine Culture, Routine Final report Result 1 No growth PAP TEST W/ HPV REGARDLESS 2016-12-15 DIAGNOSIS: Specimen adequacy: Clinician provided ICD10: Performed by: . . Note: HPV, high-risk Negative Negative GC/CHLAM PROBE (STATE) 2016-12-15 CHLAMYDIA GC SYPHILIS (STATE) 2016-12-15 TRICHOMONAS (IN HOUSE) 2016-12-15 TRICHOMONAS negative Control + Lot # [id number] Exp date 11/2017 URINE DRUG SCREEN (IN HOUSE) 2016-12-15 Lot # [id number] Exp date 04/2018 Control + COCAINE neg AMPH neg MTD neg THC neg OPIATE neg BENZO neg PCP neg BAR neg OXY neg MAMP neg TCA neg BUP neg MDMA neg UA LONG DIP (IN HOUSE) 2016-12-15 Lot # [id number] Exp date 10/2017 Clarity clear Color yellow Odor no GLU neg ERIK neg KET trace SG 1.025 BLO trace pH 6.0 Protein neg URO 1.0 NIT neg MIREYA trace Lot # Exp date HIV (STATE) 2016-12-15 HEP B SURFACE ANTIGEN (STATE) 2016-12-15 HEP B ANTIBODY HEP B ANTIBODY (RML) HEP B ANTIBODY (STATE) PDF Report 2016-12-15 PDF Report1 LCLS BACTERIAL VAGINOSIS (IN HOUSE) 2016-12-15 RESULTS negative Control + Lot # [id number] Exp date 06/2017 Ultrasound : OB, Early <14 WEEKS 2016-12-26 PROCEDURES Procedure Date Ordered Result Body Site BLOOD TYPING, ABO Dec 15, 2016 BLOOD TYPING, RH (D) Dec 15, 2016 CULTURE, BACTERIA, OTHER Dec 15, 2016 COMPLETE CBC W/AUTO DIFF WBC Dec 15, 2016 No Charge Dec 15, 2016 URINE CULTURE/COLONY COUNT Dec 15, 2016 RUBELLA ANTIBODY Dec 15, 2016 STAHL VAG, DNA, DIR PROBE Dec 15, 2016 TRICHOMONAS ASSAY W/OPTIC Dec 15, 2016 RBC ANTIBODY SCREEN Dec 15, 2016 SPECIMEN HANDLING Dec 15, 2016 GLYCATED HEMOGLOBIN TEST Dec 15, 2016 ASSAY THYROID STIM HORMONE Dec 15, 2016 URINALYSIS, AUTO, W/O SCOPE Dec 15, 2016 VENIPUNCT, ROUTINE* Dec 15, 2016 IMMUNIZATIONS No Known Immunizations MEDICAL (GENERAL) HISTORY Type Description Date Surgical History section Hospitalization History Childbirth
--- OUTSIDE RECORDS SUMMARY | 2020-05-13 14:00 | XMS REPORT | Continuity of Care Document ---
Demographics Preferred Language Unknown Marital Status Unknown Synagogue Affiliation Unknown Race Unknown Ethnic Group Unknown Author Organization Unknown Address Unknown Phone Unavailable Allergies Active Description Code Type Severity Reaction Onset Reported/Identified Relationship to Patient Clinical Status Yes No Known Drug Allergies [id number] Drug Allergy Unknown N/A 06/07/2017 Medications There is no data. Problems Date Dx Coded Attending Type Code Diagnosis Diagnosed By 09/15/2006 Ot 780.4 12/30/2013 FELICITA GAR Ot 4 90 BRONCHITIS NOS 12/30/2013 FELICITA GAR Ot 786.05 SHORTNESS OF BREATH 12/27/2016 SHUN DAMON MD R Ot Z34.8 2 ENCOUNTER FOR SUPRVSN OF NORMAL PREGNANC 01/01/2017 SHUN DAMON MD Ot Z34.8 2 ENCOUNTER FOR SUPRVSN OF NORMAL PREGNANC 01/19/2017 SHUN DAMON MD R Ot Z34.8 2 ENCOUNTER FOR SUPRVSN OF NORMAL PREGNANC 01/19/2017 SHUN DAMON MD R Ot Z34.8 2 ENCOUNTER FOR SUPRVSN OF NORMAL PREGNANC 01/19/2017 SHUN DAMON MD R Ot Z34.8 2 ENCOUNTER FOR SUPRVSN OF NORMAL PREGNANC 02/07/2017 SHUN DAMON MD R Ot Z34.8 2 ENCOUNTER FOR SUPRVSN OF NORMAL PREGNANC 02/08/2017 SHUN DAMON MD R Ot Z34.8 2 ENCOUNTER FOR SUPRVSN OF NORMAL PREGNANC 02/08/2017 SHUN DAMON MD R Ot Z3A.2 0 20 WEEKS GESTATION OF 02/17/2017 SHUN DAMON MD Ot Z34.8 2 ENCOUNTER FOR SUPRVSN OF NORMAL PREGNANC 02/17/2017 SHUN DAMON MD R Ot Z3A.2 0 20 WEEKS GESTATION OF 05/17/2017 SHUN DAMON MD R Ot O46.9 3 ANTEPARTUM HEMORRHAGE, UNSPECIFIED, 05/17/2017 SHUN DAMON MD Ot Z3A.3 5 35 WEEKS GESTATION OF 05/19/2017 SHUN DAMON MD R Ot O46.9 3 ANTEPARTUM HEMORRHAGE, UNSPECIFIED, 05/19/2017 SHUN DAMON MD, Ot Z3A.3 5 35 WEEKS GESTATION OF 06/14/2017 SAFIA BENNETT MD, Ot O34.211 MATERN CARE FOR LOW TRANSVERSE SCAR FROM 06/14/2017 SAFIA BENNETT MD, Ot O69.81X0 LABOR AND DEL COMP BY CORD AROUND NECK, 06/14/2017 SAFIA BENNETT MD, Ot Z37.0 SINGLE LIVE 06/14/2017 SAFIA BENNETT MD, Ot Z3A.39 39 WEEKS GESTATION OF 03/13/2020 SHUN DAMON MD, Ot Z34.8 2 ENCOUNTER FOR SUPRVSN OF NORMAL PREGNANC Procedures Code Description Performed By Per formed On [id number] EX TRACTION OF POC, LOW CERVICAL, OPEN AP 06/12/2017 Results Test Result Range CBC With Differential/Platelet - 7 11:10 WBC 7.9 x10E3/uL 3.4-10.8 RBC 4.33 x10E6/uL 3.77-5.28 Hemoglobin 13.6 g/dL 11.1-15.9 Hematocrit 40.5 % 34.0-46.6 MCV 94 fL 79-97 MCH 31.4 pg 26.6-33.0 MCHC 33.6 g/dL 31.5-35.7 RDW 13.4 % 12.3-15.4 Platelets 256 x10E3/uL 150-379 Neutrophils 70 % Lymphs 21 % Monocytes 7 % Eos 2 % Basos 0 % Neutrophils (Absolute) 5.5 x10E3/uL 1.4- 7.0 Lymphs (Absolute) 1.7 x10E3/uL 0.7-3.1 Monocytes(Absolute) 0.6 x10E3/uL 0.1-0.9 Eos (Absolute) 0.1 x10E3/uL 0.0-0.4 Baso (Absolute) 0.0 x10E3/uL 0.0-0.2 Immature Granulocytes 0 % Immature Grans (Abs) 0.0 x10E3/uL 0.0-0. 1 ABO Grouping and Rho(D) Typing - 7 11:10 ABO Grouping O Rh Factor Positive Hemoglobin A1c - 12/15/16 11:10 Hemoglobin A1c 5.3 % 4.8-5.6 TSH - 12/15/16 11:10 TSH 1.090 uIU/mL 0.450-4.500 Rubella Antibodies, IgG - 12/15/16 11:10 Rubella Antibodies, IgG 2.45 index Immun e >0.99 Antibody Screen - 12/15/16 11:10 Antibody Screen Negative Negative Urine Culture, Routine - 12/15/16 11:10 Urine Culture, Routine Note Genital Culture, Routine - 12/15/16 11:1 0 Genital Culture, Routine Note Pap Lb, HPV-hr - 12/15/16 11:10 HPV, high-risk Negative Negative DIAGNOSIS: Comment Specimen adequacy: Comment Clinician provided ICD10: Comment Performed by: Comment . . Note: Comment Urine Culture, Routine - 02/09/17 11:17 Urine Culture, Routine Note CBC With Differential/Platelet - 7 14:50 WBC 10.3 x10E3/uL 3.4-10.8 RBC 3.84 x10E6/uL 3.77-5.28 Hemoglobin 12.1 g/dL 11.1-15.9 Hematocrit 35.9 % 34.0-46.6 MCV 94 fL 79-97 MCH 31.5 pg 26.6-33.0 MCHC 33.7 g/dL 31.5-35.7 RDW 13.6 % 12.3-15.4 Platelets 214 x10E3/uL 150-379 Neutrophils 74 % Lymphs 19 % Monocytes 6 % Eos 1 % Basos 0 % Neutrophils (Absolute) 7.7 x10E3/uL 1.4- 7.0 Lymphs (Absolute) 1.9 x10E3/uL 0.7-3.1 Monocytes(Absolute) 0.6 x10E3/uL 0.1-0.9 Eos (Absolute) 0.1 x10E3/uL 0.0-0.4 Baso (Absolute) 0.0 x10E3/uL 0.0-0.2 Immature Granulocytes 0 % Immature Grans (Abs) 0.0 x10E3/uL 0.0-0. 1 Gest. Diabetes 1-Hr Screen - 04/05/17 14 :50 Gestational Diabetes Screen 145 mg/dL 65 -139 Genital Culture, Routine - 05/23/17 14:5 8 Genital Culture, Routine Note Methicillin resistant Staphylococcus aur eus (MRSA) screening culture - 06/07/17 12:00 Methicillin resistant Staphylococcus aureus (MRSA) scr eening culture NEG NRG Complete blood count (CBC) with automate d white blood cell (WBC) differential - 06/12/17 11:35 Blood leukocytes automated count (number/volume) 10.7 10*3/uL 4.3-11.0 Blood erythrocytes automated count (number/volume) 4.19 10*6/uL 4.35-5.85 Venous blood hemoglobin measurement (mass/volume) 13.0 g/dL 11.5-16.0 Blood hematocrit (volume fraction) 38 % 35-52 Automated erythrocyte mean corpuscular volume 90 [ foz_us] 80-99 Automated erythrocyte mean corpuscular h emoglobin (mass per erythrocyte) 31 pg 25-34 Automated erythrocyte mean corpuscular h emoglobin concentration measurement (mass/volume) 35 g/dL 32-36 Automated erythrocyte distribution width ratio 13. 2 % 10.0- 14.5 Automated blood platelet count (count/volume) 199 10*3/uL 130-400 Automated blood platelet mean volume measurement 10.8 [foz_us] 7.4-10.4 Automated blood neutrophils/100 leukocytes 74 % 42-75 Automated blood lymphocytes/100 leukocytes 17 % 12-44 Blood monocytes/100 leukocytes 8 % 0-12 Automated blood eosinophils/100 leukocytes 1 % 0-10 Automated blood basophils/100 leukocytes 0 % 0-10 Blood neutrophils automated count (number/volume) 7.9 10*3 1.8-7.8 Blood lymphocytes automated count (number/volume) 1.8 10*3 1.0-4.0 Blood monocytes automated count (number/volume) 0. 9 10*3 0.0-1.0 Automated eosinophil count 0.1 10*3/uL 0 .0-0.3 Automated blood basophil count (count/volume) 0.0 10*3/uL 0.0-0.1 Blood type T Indirect antibody screen pa daxa - 06/12/17 11:35 ABO+Rh group OP NRG Transfusion band number [id number] NRG Blood group antibody screen NEGATIVE NR G Encounters ACCT No. Visit Date/Time Discharge Status Pt. Type Provider Facility Loc./Unit Complaint [id number] 12/17/2016 03:07:00 Document Registration [id number] 02/11/2017 03:06:00 Document Registration [id number] 12/18/2016 16:05:00 Document Registration [id number] 12/21/2016 08:50:00 Document Registration [id number] 05/13/2020 11:13:00 020 13:43:00 DIS Emergency SHELBY ROTHMAN Or[place] COOLEY [facility] ER WEAKNESS [id number] 06/12/2017 11:05:00 017 11:15:00 DIS Inpatient SAFIA BENNETT MD [facility] LDRP TERM WITH PREVIOUS [id number] 06/07/2017 12:03:00 017 12:54:00 DIS Outpatient SAFIA BENNETT MD [facility] PREOP REPEAT C-SECTIO N [id number] 05/17/2017 09:00:00 017 10:40:00 DIS Outpatient SHUN DAMON MD [facility] WSo VAGINAL BLEEDING [id number] 02/07/2017 10:02:00 017 23:59:59 CLS Outpatient SHUN DAMON MD [facility] RAD SURVEY [id number] 12/26/2016 13:55:00 017 23:59:59 CLS Outpatient SHUN DAMON MD [facility] RAD NORMAL IN [facility] [id number] 12/30/2013 19:15:00 014 21:26:00 DIS Emergency FELICITA GAR [facility] ER SOA CONGESTION [id number] 01/19/2017 11:28:00 Document Registration [id number] 08/25/2019 12:00:00 08/25/2019 23:59:5 9 CLS Outpatient MIKE FERNANDO [facility] [id number] 05/26/2017 14:08:00 Document Registration [id number] 04/06/2017 10:11:00 Document Registration
== END 2020-05-13 13:43 | disposition home or self-care (01) ==
LOC: EDUNIT# 11:12 → ER 11:13
DX: R42 Dizziness and giddiness (principal); F41.9 Anxiety disorder, unspecified; F17.210 Nicotine dependence, cigarettes, uncomplicated
CPT/HCPCS: 36415; 80053; 81000; 83735; 84439; 84443; 84703; 85025

== ENCOUNTER 2022-03-09 22:37 | Emergency (ER) | payer SELFPAY ==
[~2022-03-09] VITALS: Ht 165 cm; Wt 100.0 kg
[~2022-03-09 22:37] MED LIST changes: +LORA-404 PO; -OXYC-465 PO; +OXYC-556 PO
[2022-03-09 23:27] LABS: BASOPHILS % (AUTO) 1 % (0-10); EOSINOPHILS # (AUTO) 0.1 10^3/uL (0.0-0.3); EOSINOPHILS % (AUTO) 2 % (0-10); HEMATOCRIT 41 % (35-52); HEMOGLOBIN 14.3 g/dL (11.5-16.0); LYMPHOCYTES # (AUTO) 0.4 10^3/uL (1.0-4.0); LYMPHOCYTES % (AUTO) 6 % (12-44); MEAN CORPUSCULAR HEMOGLOBIN 32 pg (25-34); MEAN CORPUSCULAR HGB CONC 35 g/dL (32-36); MEAN CORPUSCULAR VOLUME 91 fL (80-99); MEAN PLATELET VOLUME 11.3 fL (9.0-12.2); MONOCYTES # (AUTO) 0.6 10^3/uL (0.0-1.0); MONOCYTES % (AUTO) 11 % (0-12); NEUTROPHILS # (AUTO) 4.7 10^3/uL (1.8-7.8); NEUTROPHILS % (AUTO) 81 % (42-75); PLATELET COUNT 208 10^3/uL (130-400); WHITE BLOOD COUNT 5.9 10^3/uL (4.3-11.0)
--- NOTE | 2022-03-09 23:28 | ED General ---
General Chief Complaint: Chest Pain Stated Complaint: CHEST PAIN, FEVER Nursing Triage Note: PT ARRIVAL TO ER WITH COMPLAINT OFF CHEST PAIN/FEVER SINCE 1630 HOURS. PT STATES THAT SHE FELT FINE BEFORE AND IT ALL CAME ON AT ONCE. PT STATES THAT SHE INITIALLY THOUGHT IT WAS A PANICK ATTACK, BUT THEN THE FEVER STARTED. PAIN IS DESCRIBED A RUSHING/TIGHTNESS IN CHEST LIKE FEELING. Source of Information: Patient, Family Exam Limitations: No Limitations History of Present Illness Date Seen by Provider: March 09, 2022 Time Seen by Provider: 23:10 Initial Comments Patient is a 41-year-old female who presents to the emergency room with a chief complaint of chest discomfort and fever since about 4:00 this afternoon. Patient states that she felt well until that time when she developed shaking chills, generalized body ache and headache. She has never had anything quite like this before. She states it was sudden. She took about 800 mg of ibuprofen at about 830. She states her T-max at home was 103 or 104. She denies any shortness of breath or productive cough. She did have an earache about 4 weeks ago. No sore throat. No nausea, vomiting or diarrhea. No burning with urination or abnormal vaginal discharge. No rashes or joint swelling. She does have body aches all over. She is not COVID vaccinated. She did not get a flu vaccine. She denies any known sick contacts. She does smoke. Does not take any daily medications. All other review of systems reviewed and negative except as stated. Timing/Duration: 4-6 Hours Severity: Moderate Associated Systoms: Chest Pain, Headaches, Malaise Allergies and Home Medications Allergies Coded Allergies: No Known Drug Allergies (Unverified , 06/07/17) Patient Home Medication List Home Medication List Reviewed: Yes Diphenhydramine HCl (Benadryl) 25 Mg Capsule, 25 MG PO DAILY, (Reported) Entered as Reported by: SHARAN MIRAMONTES on 06/07/17 1215 Docusate Sodium (Docusate Sodium) 100 Mg Capsule, 100 MG PO BID Prescribed by: SAFIA GAN on 06/13/17 0757 Ibuprofen (Ibuprofen) 800 Mg Tablet, 800 MG PO Q6H Prescribed by: SAFIA GAN on 06/13/17 0757 Lorazepam (Ativan) 0.5 Mg Tablet, 0.5 MG PO DAILY PRN for ANXIETY Prescribed by: SHELBY ROTHMAN on 05/13/20 1334 Oxycodone HCl/Acetaminophen (Oxycodone-Acetaminophen 10-325) 1 Each Tablet, 1-2 TAB PO Q4HR PRN for PAIN-MODERATE Prescribed by: SAFIA GAN on 06/13/17 0757 Vit/Iron Fumarate/FA ( Tablet) 1 Each Tablet, 1 EACH PO DAILY, (Reported) Entered as Reported by: GRECIA ALEXIS on 05/17/17 0921 Review of Systems Review of Systems Constitutional: see HPI EENTM: no symptoms reported Respiratory: no symptoms reported Cardiovascular: no symptoms reported Gastrointestinal: no symptoms reported Genitourinary: no symptoms reported Musculoskeletal: joint pain, muscle pain Skin: no symptoms reported Psychiatric/Neurological: Headache All Other Systems Reviewed Negative Unless Noted: Yes Past Bsdbhyo-Gsxoss-Vzikdt Hx Patient Social History Tobacco Use?: Yes Tobacco type used: Cigarettes Smoking Status: Current Everyday Smoker Smokeless Tobacco Frequency: Current Everyday User Use of E-Cig and/or Vaping dev: No Substance use?: No Alcohol Use?: Yes Alcohol type: Beer, Hard Liquor, Wine Alcohol Frequency: Rarely Pt feels they are or have been: No Immunizations Up To Date Tetanus Booster (TDap): Unknown PED Vaccines UTD: Yes Influenza Vaccine Up-to-Date: No; Not Current Seasonal Allergies Seasonal Allergies: No Past Medical History Surgeries: Yes Section, Tubal Ligation Respiratory: No Cardiac: No Neurological: No Female Reproductive Disorders: Denies Sexually Transmitted Disease: No HIV/AIDS: No Genitourinary: No Gastrointestinal: Yes Gastroesophageal Reflux Musculoskeletal: No Endocrine: No HEENT: Yes (GLASSES) Loss of Vision: Bilateral Hearing Impairment: Denies Cancer: No Psychosocial: No Integumentary: No Blood Disorders: No Adverse Reaction/Blood Tranf: No Physical Exam Vital Signs Vital Signs - First Documented 03/09/22 22:58 Temp 38.9 Pulse 122 Resp 20 B/P (MAP) 167/90 (115) Pulse Ox 97 O2 Delivery Room Air Capillary Refill : Less Than 3 Seconds Height, Weight, BMI Height: 5'5.00" Weight: 240lbs. 3.0oz. [id number]; 36.00 BMI Method: General Appearance: No Apparent Distress, WD/WN Eyes: Bilateral Eye Normal Inspection, Bilateral Eye PERRL, Bilateral Eye EOMI Neck: Normal Inspection, Supple Respiratory: Lungs Clear (room air sats 95-97%), Normal Breath Sounds, No Accessory Muscle Use, No Respiratory Distress Cardiovascular: Regular Rate, Rhythm (tachy 115), Normal Peripheral Pulses Gastrointestinal: Normal Bowel Sounds, Non Tender, Soft Extremity: Normal Capillary Refill, Normal Inspection, Normal Range of Motion, Non Tender, No Calf Tenderness Neurologic/Psychiatric: Alert, Oriented x3, No Motor/Sensory Deficits, Normal Mood/Affect, medical claims representative II-XII Norm as Tested Skin: Normal Color, Warm/Dry Progress/Results/Core Measures Suspected Sepsis SIRS Temperature: Pulse: 122 Respiratory Rate: 20 Laboratory Tests 03/09/22 22:51: White Blood Count 5.9 Blood Pressure 167 /90 Mean: 115 Laboratory Tests 03/09/22 22:51: Creatinine 1.01, Platelet Count 208, Total Bilirubin 0.5 Results/Orders Lab Results Laboratory Tests Test 03/09/22 22:51 03/09/22 23:34 Range/Units White Blood Count 5.9 4.3-11.0 10^3/uL Red Blood Count 4.46 3.80-5.11 10^6/uL Hemoglobin 14.3 11.5-16.0 g/dL Hematocrit 41 35-52 % Mean Corpuscular Volume 91 80-99 fL Mean Corpuscular Hemoglobin 32 25-34 pg Mean Corpuscular Hemoglobin Concent 35 32-36 g/dL Red Cell Distribution Width 12.2 10.0-14.5 % Platelet Count 208 130-400 10^3/uL Mean Platelet Volume 11.3 9.0-12.2 fL Immature Granulocyte % (Auto) 0 % Neutrophils (%) (Auto) 81 H 42-75 % Lymphocytes (%) (Auto) 6 L 12-44 % Monocytes (%) (Auto) 11 0-12 % Eosinophils (%) (Auto) 2 0-10 % Basophils (%) (Auto) 1 0-10 % Neutrophils # (Auto) 4.7 1.8-7.8 10^3/uL Lymphocytes # (Auto) 0.4 L 1.0-4.0 10^3/uL Monocytes # (Auto) 0.6 0.0-1.0 10^3/uL Eosinophils # (Auto) 0.1 0.0-0.3 10^3/uL Basophils # (Auto) 0.0 0.0-0.1 10^3/uL Immature Granulocyte # (Auto) 0.0 0.0-0.1 10^3/uL Neutrophils % (Manual) 81 % Lymphocytes % (Manual) 2 % Monocytes % (Manual) 10 % Eosinophils % (Manual) 2 % Basophils % (Manual) 0 % Band Neutrophils 5 % Blood Morphology Comment NORMAL Sodium Level 138 135-145 MMOL/L Potassium Level 3.7 3.6-5.0 MMOL/L Chloride Level 105 98-107 MMOL/L Carbon Dioxide Level 20 L 21-32 MMOL/L Anion Gap 13 5-14 MMOL/L Blood Urea Nitrogen 13 7-18 MG/DL Creatinine 1.01 0.60-1.30 MG/DL Estimat Glomerular Filtration Rate 72 BUN/Creatinine Ratio 13 Glucose Level 112 H 70-105 MG/DL Calcium Level 9.4 8.5-10.1 MG/DL Corrected Calcium 9.1 8.5-10.1 MG/DL Total Bilirubin 0.5 0.1-1.0 MG/DL Aspartate Amino Transf (AST/SGOT) 25 5-34 U/L Alanine Aminotransferase (ALT/SGPT) 35 0-55 U/L Alkaline Phosphatase 89 40-136 U/L C-Reactive Protein High Sensitivity 0.47 0.00-0.50 MG/DL Total Protein 7.6 6.4-8.2 GM/DL Albumin 4.4 3.2-4.5 GM/DL Serum Test, Qualitative NEGATIVE NEGATIVE Influenza Type A (RT-PCR) Not Detected Not Detecte Influenza Type B (RT-PCR) Not Detected Not Detecte SARS-CoV-2 RNA (RT-PCR) Detected H Not Detecte My Orders Orders - MEAGAN MCCORMICK MD Ekg Tracing (03/09/22 22:42) Ekg Tracing (03/09/22 22:42) Ed Iv/Invasive Line Start (03/09/22 23:20) Cbc With Automated Diff (03/09/22 23:20) Comprehensive Metabolic Panel (03/09/22 23:20) Chest 1 View, Ap/Pa Only (03/09/22 23:20) Influenza A And B By Pcr (03/09/22 23:20) Isolation Central Supply Req (03/09/22 23:20) Ns Iv 1000 Ml (Sodium Chloride 0.9%) (03/09/22 23:30) Acetaminophen Tablet (Tylenol Tablet) (03/09/22 23:30) Hcg,Qualitative Serum (03/09/22 23:20) Covid 19 Inhouse Test (03/09/22 23:20) Hs C Reactive Protein (03/09/22 23:20) Manual Differential (03/09/22 22:51) Ketorolac Injection (Toradol Injection) (03/10/22 00:15) Orphenadrine Inj (Ed Only) (Norflex Inje (03/10/22 00:15) Medications Given in ED Current Medications Medications Dose Ordered Sig/Irene Route Start Time Stop Time Status Last Admin Dose Admin Acetaminophen 1,000 mg ONCE ONCE PO 03/09/22 23:30 03/09/22 23:31 DC 03/09/22 23:35 1,000 MG Vital Signs/I&O 03/09/22 03/09/22 22:58 23:35 Temp 38.9 38.2 Pulse 122 Resp 20 B/P (MAP) 167/90 (115) Pulse Ox 97 O2 Delivery Room Air Capillary Refill : Less Than 3 Seconds Blood Pressure Mean: 115 Progress Note : Time: 00:07 Progress Note Patient's labs reviewed, all within normal limits. She is COVID-positive. Chest x-ray is reviewed and shows no evidence of infiltrate or effusion. She is still having a "splitting headache". No signs of meningismus. No signs of COVID-pneumonia. She still has a "pinching pain" in her chest. Sats are 95-97 if she is laying semi-Ramirez's. She is encouraged to drink lots of fluids at home, Tylenol and ibuprofen alternating every 6 hours. Return precautions to include if worsening pain or shortness of breath to come back to the emergency department. ECG Initial ECG Impression Date: March 09, 2022 Initial ECG Impression Time: 22:46 Initial ECG Rate: 114 Initial ECG Rhythm: S.Tach Initial ECG Impression: Normal, Nonspecific Changes Departure Impression Primary Impression: COVID-19 Disposition: 01 HOME, SELF-CARE Condition: Stable Departure-Patient Inst. Decision time for Depature: 00:12 Referrals: SHUN DAMON MD (PCP/Family) Primary Care Physician Patient Instructions: COVID-19 (DC) Add. Discharge Instructions: Quarantine at home and isolate from family members for 5 days. Then for an additional 5 days you can resume normal outside activities but if you are around people you need to mask for an additional 5 days. Alternate extra strength Tylenol 2 tablets with ibuprofen 600 to 800 mg every 6 hours. Drink plenty of fluids to stay well-hydrated. Try and stay active at home. If you have worsening pain or you are having worsening shortness of breath please come back to the emergency room for reevaluation. Follow-up with your primary care doctor as needed, ideally after you are symptom-free. Copy Copies To 1: SHUN DAMON MD, KATHRYN M MD March 09, 2022 23:28
[2022-03-09] MEDS ORDERED: ACETAMINOPHEN 500 MG TAB (TYLENOL) PO ONE (23:30)
[2022-03-09] MEDS ORDERED: NS IV 1000 ML 1,000 ML IV SCH (23:30)
[2022-03-09 23:35] LABS: ALBUMIN 4.4 GM/DL (3.2-4.5); POTASSIUM 3.7 MMOL/L (3.6-5.0)
[2022-03-09 23:36] LABS: CALCIUM 9.4 MG/DL (8.5-10.1)
[2022-03-09 23:37] LABS: TOTAL PROTEIN 7.6 GM/DL (6.4-8.2)
[2022-03-09 23:39] LABS: BILIRUBIN,TOTAL 0.5 MG/DL (0.1-1.0)
[2022-03-09 23:41] LABS: CREATININE SERUM 1.01 MG/DL (0.60-1.30)
[2022-03-09 23:51] LABS: BAND NEUTROPHILS 5 %; BASOPHILS % (MANUAL) 0 %; EOSINOPHILS % (MANUAL) 2 %; LYMPHOCYTES % (MANUAL) 2 %; MONOCYTES % (MANUAL) 10 %; NEUTROPHILS % (MANUAL) 81 %
[2022-03-09 23:52] LABS: RBC MORPH NORMAL
[2022-03-10] MEDS ORDERED: ORPHENADRINE 60 MG/2 ML (NORFLEX) AMP (ED ONLY) IV ONE (00:15)
[2022-03-10] MEDS ORDERED: KETOROLAC 30 MG/ML VIAL IVP ONE (00:15)
[2022-03-10 00:57] VITALS: BP 116/71
--- NOTE | 2022-03-10 06:29 | Diagnostic Imaging Report ---
INDICATION: Chest discomfort and fever Frontal chest obtained at 1135 p.m. and compared to 12/30/2013. Heart and mediastinal silhouette are normal in appearance. The lungs are clear. There is no pneumothorax or pleural fluid. IMPRESSION: Negative chest. Dictated by: Dictated on workstation # [id number]
== END 2022-03-10 00:56 | disposition home or self-care (01) ==
LOC: EDUNIT# 22:37 → ER 22:39
DX: U07.1 COVID-19 (principal); F17.210 Nicotine dependence, cigarettes, uncomplicated; F17.220 Nicotine dependence, chewing tobacco, uncomplicated; Z28.310 Unvaccinated for COVID-19
CPT/HCPCS: 36415; 71045; 80053; 84703; 85007; 85027; 86141; 87636; 93005